=== PATIENT | male | born 1945 | race Caucasian/White ===

== ENCOUNTER → 2016-11-06 | Outpatient (CLI) | payer OTHER ==
[2016-11-06 08:12] LABS: BLOOD GAS BASE EXCESS -1.3 mmol/L (-2-2); BLOOD GAS CARBOXYHEMOGLOBIN 1.4 % (0-4); BLOOD GAS HCO3 23 mmol/L (22-26); BLOOD GAS METHEMOGLOBIN 1.3 % (0-2); BLOOD GAS O2 HGB SATURATION 95 % (90-100); BLOOD GAS OXYGEN CONTENT 19.6 Vol % (12.0-20.0); BLOOD GAS PCO2 36 mmHG (38-42); BLOOD GAS PO2 91 mmHG (61-120); BLOOD GAS TOTAL HGB 14.6 G/DL (12.0-16.0); CRITICAL VALUE NO; DRAW SITE RT RADIAL; FIO2 21 %; NUMBER OF ARTERIAL PUNCTURES 1; OXYGEN DEVICE ROOM AIR; STAT NO; TEMP CORR TO 98.6; ULNAR PULSE PRESENT
--- NOTE | 2016-11-07 08:48 | RSPPFT ---
DATE OF PROCEDURE: 11/06/16 COMMENTS: Spirometry shows FVC of 4.07 at 89% of predicted, FEV1 of 3.1 at 88%, FEV1/FVC ratio is normal. Flow is normal at FEF 25, FEF 50, FEF 75 and FEF 25-75. There is no response after bronchodilator treatment. Lung volumes show residual volume is normal. TLC is normal. Diffusion capacity is decreased. Flow volume loop indicates a normal pattern. Blood gases show pH of 7.42, PCO2 of 36, PO2 of 91, BiCarb of 23, O2 Saturation at 96%. 5-minute walk test shows no de-saturation. IMPRESSION: 1. Normal spirometry. 2. No response after bronchodilator treatment. 3. Lung volumes are normal. 4. Decrease in diffusion capacity. 5. Blood gases show normal oxygenation. 6. 6-minute walk test shows no de-saturation.
== END ==
LOC: PHRSP 07:38
PROVIDERS: ATTEND Specialist
DX: R06.00 Dyspnea, unspecified (principal)
CPT/HCPCS: 36600; 82805; 94060; 94620; 94726; 94729

== ENCOUNTER 2017-05-08 15:24 | Emergency (ER) | payer OTHER ==
[~2017-05-08] VITALS: Ht 182.9 cm; Wt 89.0 kg
[2017-05-08 15:30] VITALS: BP 220/161; PULSE 106; RESP 28; TEMP 99.6; O2SAT 92
[2017-05-08] MEDS ORDERED: predniSONE 50 MG TAB PO ONE (16:00)
[2017-05-08 16:09] VITALS: BP 136/76; PULSE 90; RESP 16; TEMP 99.7; O2SAT 95
[2017-05-08] MEDS ORDERED: OMEG1CAP53 PO (16:09)
[2017-05-08] MEDS ORDERED: CENTCHW4 CHEW (16:09)
[2017-05-08] MEDS ORDERED: LISI-515 PO (16:09)
[2017-05-08] MEDS ORDERED: ATOR40TA16 PO (16:09)
[2017-05-08] MEDS ORDERED: CALC1TAB12 PO (16:09)
[2017-05-08] MEDS ORDERED: ASPI-516 CHEW (16:09)
[2017-05-08] MEDS ORDERED: VITATAB11 (16:09)
[2017-05-08] MEDS ORDERED: FLUO1TAB3 PO (16:09)
[2017-05-08] MEDS ORDERED: FENO145T2 PO (16:09)
--- NOTE | 2017-05-08 16:15 | RADRPT ---
EXAM DATE/TIME: 05/08/2017 15:48 [facility] COMPARISON: No previous studies available for comparison. INDICATIONS : Flu like symptoms for one month. Productive cough, fever, chest pain and short of breath. MEDICAL HISTORY : Hypertension. SURGICAL HISTORY : None. ENCOUNTER: Initial ACUITY: 1 month PAIN SCORE: 8/10 LOCATION: Bilateral chest FINDINGS: PA and lateral views of the chest. Moderate to severe bilateral interstitial pulmonary opacity with p eripheral and lower lung zone predominance right greater than left. No evidence of focal consolidatio n. No pleural effusion or pneumothorax. Cardiomediastinal silhouette within normal limits. Moderate l eft glenohumeral joint arthrosis. Degenerative findings of the thoracic spine. CONCLUSION: Moderate bilateral interstitial pulmonary opacity. Differential diagnosis is chronic interstitial addison g disease versus pulmonary edema. George Buck MD on May 08, 2017 at 16:09 Board Certified Radiologist. This report was verified electronically.
[2017-05-08] MEDS ORDERED: methylPREDNISolone SOD SUCC 125 MG/2 ML VIAL IV PUSH ONE (16:30)
[2017-05-08] MEDS ORDERED: RESP: ALBUTEROL 2.5 MG/IPRATROPIUM 0.5 MG NEB (SCH) INH ONE (16:30)
--- NOTE | 2017-05-08 16:30 | PD ---
HPI Chief Complaint: Cold / Flu Symptoms Time Seen by Provider: 15:37 Travel History International Travel<30 days: No Contact w/Intl Traveler<30days: No Traveled to known affect area: No History of Present Illness HPI PATIENT C/O CONTINUED COUGH DESPITE BEING GIVEN TAMIFLU RX FOR HIS FLU DIAGNOSED AT URGENT CARE. PATIENT STATES THAT HE WAS DIAGNOSED BY DR SULLIVAN HAVING "SCAR TISSUE IN HIS LUNGS" BUT PATIENT WAS UNSURE OF COPD DX. PATIENT STATES INITIALLY HAD FEVER, WHICH HAVE SUBSIDED NOW, BUT PROD COUGH IS NOW PRESENT AND NOT IMPROVING. PT DENIES SOB PFSH Past Medical History Hx Anticoagulant Therapy: Yes (ASA 81 MG DAILY) Cardiovascular Problems: Yes (HTN,CHOLEST) High Cholesterol: Yes Hypertension: Yes Social History Alcohol Use: No Tobacco Use: No Substance Use: No Allergies-Medications (Allergen,Severity, Reaction): Coded Allergies: No Known Allergies (Unverified , 05/08/17) Reported Meds & Prescriptions Reported Meds & Active Scripts Active Reported Lovaza (Xvwyn-8-Wdjt Ethyl Esters) 1 Gm Cap 2 Gm PO BID Centrum (Multiple Vitamins W/ Minerals) 1 Chew 1 Tab CHEW DAILY Vitamin B Complex (B-Complex Vitamins) 1 Tab Calcium 500 +D (Calcium Carbonate-Cholecalciferol) 500-400 Mg-Unit Tab 1 Tab PO BID Atorvastatin (Atorvastatin Calcium) 40 Mg Tab 40 Mg PO HS Fenofibrate 145 Mg Tab 145 Mg PO DAILY Lisinopril 20 Mg Tab 20 Mg PO DAILY Fluoxetine (Fluoxetine HCl) 20 Mg Tab 20 Mg PO DAILY Aspirin 81 Mg Chew 81 Mg CHEW DAILY Review of Systems Except as stated in HPI: all other systems reviewed are Neg General / Constitutional: No: Fever Eyes: No: Visual changes HENT: No: Headaches Cardiovascular: No: Chest Pain or Discomfort Respiratory: Positive: Cough Gastrointestinal: No: Abdominal Pain Genitourinary: No: Dysuria Musculoskeletal: No: Pain Skin: No Rash Neurologic: No: Weakness Psychiatric: No: Depression Endocrine: No: Polydipsia Hematologic/Lymphatic: No: Easy Bruising Physical Exam Narrative GENERAL: SKIN: Warm and dry. HEAD: Atraumatic. Normocephalic. EYES: Pupils equal and round. No scleral icterus. No injection or drainage. ENT: No nasal bleeding or discharge. Mucous membranes pink and moist. NECK: Trachea midline. No JVD. CARDIOVASCULAR: Regular rate and rhythm. RESPIRATORY: No accessory muscle use. Clear to auscultation EXCEPT DRY CRACKLES BIBASILARLY GASTROINTESTINAL: Abdomen soft, non-tender, nondistended. Hepatic and splenic margins not palpable. MUSCULOSKELETAL: Extremities without clubbing, cyanosis, or edema. No obvious deformities. NEUROLOGICAL: Awake and alert. No obvious cranial nerve deficits. Motor grossly within normal limits. Five out of 5 muscle strength in the arms and legs. Normal speech. PSYCHIATRIC: Appropriate mood and affect; insight and judgment normal. Data Data Last Documented VS Vital Signs Date Time Temp Pulse Resp B/P (MAP) Pulse Ox O2 Delivery O2 Flow Rate FiO2 05/08/17 16:09 99.7 90 16 136/76 (96) 95 Room Air Orders Orders Chest, Pa & Lat (05/08/17 15:37) Prednisone (Deltasone) (05/08/17 16:00) Complete Blood Count With Diff (05/08/17 16:18) Basic Metabolic Panel (Bmp) (05/08/17 16:18) B-Type Natriuretic Peptide (05/08/17 16:18) Methylprednisolone So Succ Inj (Solumedr (05/08/17 16:30) Albuterol-Ipratropium Neb (Duoneb Neb) (05/08/17 16:30) Sodium Chloride 0.9% Flush (Ns Flush) (05/08/17 17:15) Azithromycin Inj (Zithromax Inj) (05/08/17 17:15) Labs Laboratory Tests Test 05/08/17 16:18 05/08/17 16:32 White Blood Count 10.5 TH/MM3 Red Blood Count 4.46 MIL/MM3 Hemoglobin 12.9 GM/DL Hematocrit 39.1 % Mean Corpuscular Volume 87.5 FL Mean Corpuscular Hemoglobin 28.9 PG Mean Corpuscular Hemoglobin Concent 33.0 % Red Cell Distribution Width 13.0 % Platelet Count 248 TH/MM3 Mean Platelet Volume 7.6 FL Neutrophils (%) (Auto) 79.7 % Lymphocytes (%) (Auto) 8.0 % Monocytes (%) (Auto) 8.4 % Eosinophils (%) (Auto) 1.6 % Basophils (%) (Auto) 2.3 % Neutrophils # (Auto) 8.4 TH/MM3 Lymphocytes # (Auto) 0.8 TH/MM3 Monocytes # (Auto) 0.9 TH/MM3 Eosinophils # (Auto) 0.2 TH/MM3 Basophils # (Auto) 0.2 TH/MM3 CBC Comment DIFF FINAL Differential Comment Blood Urea Nitrogen 24 MG/DL Creatinine 1.40 MG/DL Random Glucose 119 MG/DL Calcium Level 9.3 MG/DL Sodium Level 131 MEQ/L Potassium Level 4.7 MEQ/L Chloride Level 99 MEQ/L Carbon Dioxide Level 19.9 MEQ/L Anion Gap 12 MEQ/L Estimat Glomerular Filtration Rate 50 ML/MIN [facility] Medical Decision Making Medical Screen Exam Complete: Yes Emergency Medical Condition: Yes Medical Record Reviewed: Yes Differential Diagnosis PNA V PULM EDEMA V PULMONARY FIBROSIS V LIVER/KIDNEY FAILURE V ANEMIA Narrative Course NO ANEMIA, MINIMAL NEUTROPHILIA WITHOUT MAJOR LEUKOCYTOSIS....NO KIDNEY FAILURE , NORMAL BNP WHICH THEREFORE MAKE LUNG MARKINGS BE DUE TO FIBROSIS RATHER THAN PULMONARY EDEMA Diagnosis Primary Impression: Pleurisy Scripts Guaifenesin-Codeine Liq (Guaifenesin AC Liq) 100-10 Mg/5 Ml Syrp 10 ML PO Q6H Y for COUGH, #120 BOTTLE 0 Refills Prov: Cade Dominguez MD 05/08/17 Azithromycin (Zithromax Z-Benito) 250 Mg Dspk 250 MG PO DIRECTED for Infection, #1 DSPK 0 Refills 500 MG (2 tabs) day 1, then 1 tab days 2-5. Prov: Cade Dominguez MD 05/08/17 Disposition: 01 DISCHARGE HOME Condition: Stable Cade Dominguez MD May 08, 2017 16:30
[2017-05-08 16:46] LABS: AUTOMATED NEUTROPHIL # 8.4 TH/MM3 (1.8-7.7); BASOPHIL # 0.2 TH/MM3 (0-0.2); BASOPHIL % 2.3 % (0.0-2.0); EOSINOPHIL # 0.2 TH/MM3 (0-0.4); EOSINOPHIL % 1.6 % (0.0-4.0); HEMATOCRIT 39.1 % (39.0-51.0); HEMOGLOBIN 12.9 GM/DL (13.0-17.0); LYMPHOCYTE # 0.8 TH/MM3 (1.0-4.8); MEAN CELL VOLUME 87.5 FL (80.0-100.0); MEAN CORPUSCULAR HEMOGLOBIN 28.9 PG (27.0-34.0); MEAN PLATELET VOLUME 7.6 FL (7.0-11.0); MONO % 8.4 % (0.0-8.0); MONOCYTE # 0.9 TH/MM3 (0-0.9); NEUT % 79.7 % (16.0-70.0); PLATELET COUNT 248 TH/MM3 (150-450); RED BLOOD COUNT 4.46 MIL/MM3 (4.50-5.90); WHITE BLOOD COUNT 10.5 TH/MM3 (4.0-11.0)
[2017-05-08 16:59] LABS: BICARBONATE 19.9 MEQ/L (21.0-32.0); CALCIUM 9.3 MG/DL (8.5-10.1)
[2017-05-08 17:03] LABS: CREATININE 1.4 MG/DL (0.60-1.30)
[2017-05-08] MEDS ORDERED: AZITHROMYCIN INJ 500 MG in SODIUM CHLOR 0.9% 250 ML INJ 250 ML IV ONE (17:15)
[2017-05-08] MEDS ORDERED: SODIUM CHLORIDE 0.9% FLUSH 10 ML FLUSH IVF PRN (17:15)
[2017-05-08] MEDS ORDERED: ZITHTAB PO (17:51)
[2017-05-08] MEDS ORDERED: GUAISYP4 PO (17:51)
[2017-05-08] MEDS ORDERED: ALBU6.7H INH (18:43)
[2017-05-08] MEDS ORDERED: MEDR4PAK PO (18:43)
[2017-05-08 19:13] VITALS: BP 139/64
== END 2017-05-08 19:15 | disposition home or self-care (01) ==
LOC: PHED 15:24
DX: R09.1 Pleurisy (principal); I10 Essential (primary) hypertension; Z79.82 Long term (current) use of aspirin
CPT/HCPCS: 71046; 80048; 83880; 85025; 94664; 96365; 96375; 99284; J0456; J2930; J7050

== ENCOUNTER 2017-05-15 19:00 | Inpatient (IN) | payer OTHER ==
[~2017-05-15] VITALS: Ht 182.9 cm; Wt 86.3 kg
[~2017-05-15 19:00] MED LIST: ALBU6.7H INH; ASPI-516 CHEW; ATOR40TA16 PO; CALC1TAB12 PO; CENTCHW4 CHEW; FENO145T2 PO; FLUO1TAB3 PO; GUAISYP4 PO; LISI-515 PO; MEDR4PAK PO; OMEG1CAP53 PO; VITATAB11; ZITHTAB PO
[2017-05-15 19:04] VITALS: BP 102/55; PULSE 90; RESP 34; TEMP 97.7; O2SAT 97
[2017-05-15 19:08] VITALS: O2SAT 98
--- NOTE | 2017-05-15 19:29 | PD ---
HPI Chief Complaint: Respiratory Distress Time Seen by Provider: 19:05 Travel History International Travel<30 days: No Contact w/Intl Traveler<30days: No Traveled to known affect area: No History of Present Illness HPI Patient is a 72-year-old male with a history of shortness of breath recent ER visits chest x-ray significant for probable pulmonary fibrosis presents the emergency department with shortness of breath. Patient was here a few days ago started on azithromycin, he states that he has a history of some lung scar tissue and is seen a mold runner before. According to his patient appeared very diaphoretic and was having a very hard time breathing and looked like he was going to pass out at home, she was going to bring him up here by herself but then he looked like he was going to pass out so she called 911. He was started on breathing treatments and nonrebreather in route but his room air sat was apparently in the high 90s according to EMS. PFSH Past Medical History Hx Anticoagulant Therapy: Yes (ASA 81 MG DAILY) Cardiovascular Problems: Yes (HTN,CHOLEST) High Cholesterol: Yes Hypertension: Yes Influenza Vaccination: No Past Surgical History Appendectomy: Yes Social History Alcohol Use: Yes (daily) Tobacco Use: No Substance Use: No Allergies-Medications (Allergen,Severity, Reaction): Coded Allergies: No Known Allergies (Unverified , 05/15/17) Reported Meds & Prescriptions Reported Meds & Active Scripts Active Proventil Hfa 6.7 GM Inh (Albuterol Sulfate) 90 Mcg/Act Aer 1 Puff INH Q4H PRN Reported Lovaza (Cbslt-4-Hsxw Ethyl Esters) 1 Gm Cap 2 Gm PO BID Centrum (Multiple Vitamins W/ Minerals) 1 Chew 1 Tab CHEW DAILY Vitamin B Complex (B-Complex Vitamins) 1 Tab Calcium 500 +D (Calcium Carbonate-Cholecalciferol) 500-400 Mg-Unit Tab 1 Tab PO BID Atorvastatin (Atorvastatin Calcium) 40 Mg Tab 40 Mg PO HS Fenofibrate 145 Mg Tab 145 Mg PO DAILY Lisinopril 20 Mg Tab 20 Mg PO DAILY Fluoxetine (Fluoxetine HCl) 20 Mg Tab 20 Mg PO DAILY Aspirin 81 Mg Chew 81 Mg CHEW DAILY Review of Systems Except as stated in HPI: all other systems reviewed are Neg Physical Exam Narrative GENERAL: Well-developed well-nourished, anxious. Tachycardic and tachypneic. SKIN: Focused skin assessment warm/dry. HEAD: Atraumatic. Normocephalic. EYES: Pupils equal and round. No scleral icterus. No injection or drainage. ENT: No nasal bleeding or discharge. Mucous membranes pink and moist. NECK: Trachea midline. No JVD. CARDIOVASCULAR: Regular rate and rhythm. No murmur appreciated. RESPIRATORY: No accessory muscle use. Bibasilar rales, tachypnea. Breath sounds equal bilaterally. GASTROINTESTINAL: Abdomen soft, non-tender, nondistended. Hepatic and splenic margins not palpable. MUSCULOSKELETAL: No obvious deformities. No clubbing. No cyanosis. No edema. NEUROLOGICAL: Awake and alert. No obvious cranial nerve deficits. Motor grossly within normal limits. Normal speech. PSYCHIATRIC: Appropriate mood and affect; insight and judgment normal. Data Data Last Documented VS Vital Signs Date Time Temp Pulse Resp B/P (MAP) Pulse Ox O2 Delivery O2 Flow Rate FiO2 05/15/17 23:01 84 16 156/67 (96) 97 Nasal Cannula 4.00 05/15/17 19:04 97.7 Orders Orders Sepsis Workup Initiated (05/15/17 ) Electrocardiogram (05/15/17 19:05) Complete Blood Count With Diff (05/15/17 19:05) Comprehensive Metabolic Panel (05/15/17 19:05) Prothrombin Time / Inr (Pt) (05/15/17 19:05) Act Partial Throm Time (Ptt) (05/15/17 19:05) Lactic Acid Sepsis Protocol (05/15/17 19:05) Magnesium (Mg) (05/15/17 19:05) Phosphorus (Po4) (05/15/17 19:05) Lipase (05/15/17 19:05) Ckmb (Isoenzyme) Profile (05/15/17 19:05) Troponin I (05/15/17 19:05) Urinalysis - C+S If Indicated (05/15/17 19:05) Blood Culture (05/15/17 19:05) Chest, Single Ap (05/15/17 19:05) Blood Gas Venous (Vbg) (05/15/17 19:05) Ecg Monitoring (05/15/17 19:05) Iv Access Insert/Monitor (05/15/17 19:05) Oximetry (05/15/17 19:05) Oxygen Administration (05/15/17 19:05) Ct Thorax/ Chest Wo Iv Contras (05/15/17 ) Ventilation & Perfusion Scan (05/15/17 ) Sodium Chlor 0.9% 1000 Ml Inj (Ns 1000 M (05/15/17 20:00) Sodium Chlor 0.9% 1000 Ml Inj (Ns 1000 M (05/15/17 20:15) Vancomycin Inj (Vancomycin Inj) (05/15/17 20:30) Piperacil-Tazo 4.5 Gm Premix (Zosyn 4.5 (05/15/17 20:30) Sodium Chlor 0.9% 1000 Ml Inj (Ns 1000 M (05/15/17 21:45) Sodium Chlor 0.9% 1000 Ml Inj (Ns 1000 M (05/15/17 22:15) Admit Order (Ed Use Only) (05/15/17 ) Labs Laboratory Tests Test 05/15/17 19:10 05/15/17 19:12 05/15/17 19:43 05/15/17 21:05 White Blood Count 13.8 TH/MM3 Red Blood Count 5.05 MIL/MM3 Hemoglobin 14.8 GM/DL Hematocrit 43.9 % Mean Corpuscular Volume 86.8 FL Mean Corpuscular Hemoglobin 29.4 PG Mean Corpuscular Hemoglobin Concent 33.8 % Red Cell Distribution Width 14.1 % Platelet Count 369 TH/MM3 Mean Platelet Volume 7.2 FL Neutrophils (%) (Auto) 74.1 % Lymphocytes (%) (Auto) 18.5 % Monocytes (%) (Auto) 5.1 % Eosinophils (%) (Auto) 1.7 % Basophils (%) (Auto) 0.6 % Neutrophils # (Auto) 10.2 TH/MM3 Lymphocytes # (Auto) 2.6 TH/MM3 Monocytes # (Auto) 0.7 TH/MM3 Eosinophils # (Auto) 0.2 TH/MM3 Basophils # (Auto) 0.1 TH/MM3 CBC Comment AUTO DIFF Differential Total Cells Counted 100 Neutrophils % (Manual) 55 % Band Neutrophils % 8 % Lymphocytes % 15 % Monocytes % 5 % Eosinophils % 2 % Neutrophils # (Manual) 10.8 TH/MM3 Metamyelocytes 5 % Myelocytes 3 % Promyelocytes 7 % Differential Comment FINAL DIFF MANUAL Atypical Lymphocytes % Platelet Estimate NORMAL Platelet Morphology Comment NORMAL Prothrombin Time 10.5 SEC Prothromb Time International Ratio 1.0 RATIO Activated Partial Thromboplast Time 24.2 SEC Blood Urea Nitrogen 45 MG/DL Creatinine 1.84 MG/DL Random Glucose 86 MG/DL Total Protein 7.2 GM/DL Albumin 2.7 GM/DL Calcium Level 9.7 MG/DL Phosphorus Level 2.8 MG/DL Magnesium Level 2.2 MG/DL Alkaline Phosphatase 82 U/L Aspartate Amino Transf (AST/SGOT) 31 U/L Alanine Aminotransferase (ALT/SGPT) 55 U/L Total Bilirubin 0.2 MG/DL Sodium Level 132 MEQ/L Potassium Level 5.4 MEQ/L Chloride Level 102 MEQ/L Carbon Dioxide Level 19.9 MEQ/L Anion Gap 10 MEQ/L Estimat Glomerular Filtration Rate 36 ML/MIN Total Creatine Kinase 40 U/L Troponin I LESS THAN 0.02 NG/ML Lipase 1045 U/L Lactic Acid Level 4.3 mmol/L Blood Gas Puncture Site IV Blood Gas Patient Temperature 98.6 Venous Blood pH 7.51 Venous Blood Partial Pressure CO2 23 mmHg Venous Blood Partial Pressure O2 16 mmHg Venous Blood HCO3 18 mmol/L Venous Blood Oxygen Saturation 21 % Venous Blood Oxygen Content 4.2 Vol % Venous Blood Base Excess -4.6 mmol/L Oxygen Delivery Device NASAL CANNULA Blood Gas Liter Flow 4 L/M Urine Color YELLOW Urine Turbidity CLEAR Urine pH 5.5 Urine Specific [place] 1.015 Urine Protein NEG mg/dL Urine Glucose (UA) NEG mg/dL Urine Ketones NEG mg/dL Urine Occult Blood NEG Urine Nitrite NEG Urine Bilirubin NEG Urine Urobilinogen LESS THAN 2.0 MG/DL Urine Leukocyte Esterase NEG Urine RBC 1 /hpf Urine WBC 1 /hpf Urine Squamous Epithelial Cells <1 /hpf Urine Hyaline Casts 21 /lpf Urine Mucus FEW /lpf Microscopic Urinalysis Comment CATH-CULT NOT IND Test 05/15/17 21:58 Lactic Acid Level 1.8 mmol/L [facility] Medical Decision Making Medical Screen Exam Complete: Yes Emergency Medical Condition: Yes Differential Diagnosis Sepsis, pulmonary embolism, pneumonia, pulmonary fibrosis Narrative Course Patient room to the emergency department, lactic acid elevated, patient has left shift and immature white blood cells in his differential with elevated white blood cell count. Certainly meet SIRS criteria. Noncontrast CT shows the following results Last 24 hours Impressions Chest X-Ray 05/15/17 [id number] Signed Impressions: Service Date/Time: May 19:38 - CONCLUSION: Patchy opacities within the lung bases bilaterally and right mid lung field consistent with probable pneumonia. Clinical correlation is recommended. Martin Jones MD Lung Scan-VQ Nuclear Medicine 05/15/17 0000 Signed Impressions: Service Date/Time: May 20:56 - CONCLUSION: Low probability for pulmonary embolism. Martin Jones MD Chest CT 05/15/17 0000 Signed Impressions: Service Date/Time: May 20:04 - CONCLUSION: 1. Scattered patchy opacities throughout both lungs consistent with probable pneumonia superimposed on chronic interstitial disease. Clinical correlation is recommended. 2. Cardiomegaly and coronary artery calcifications. 3. Mildly prominent precarinal and AP window mediastinal lymphadenopathy which is nonspecific. 4. Questionable 2.7 cm left adrenal nodule which is incompletely evaluated on this examination. Martin Jones MD Patient VBG is reassuring, fluids given, antibiotic coverage broadened. Patient started on vancomycin and Zosyn, hemodynamically stable will be admitted to the hospital for diagnosis of severe sepsis, hemodynamic is stable for the floor Critical Care Narrative Aggregate critical care time was 35 minutes. Time to perform other separately billable procedures was not included in the critical care time. My time did not include minutes spent treating any other patients simultaneously or on activities that did not directly contribute to the patient's treatment. The services I provided to this patient were to treat and/or prevent clinically significant deterioration that could result in: , disability, organ failure I provided critical care services requiring my management, as noted below: Chart data review, documentation time, medication orders and management, vital sign assessments/reviewing monitor data, ordering and reviewing lab tests, ordering and interpreting/reviewing x-rays and diagnostic studies, care of the patient and discussion of the patient with the admitting physicians. Diagnosis Primary Impression: Severe sepsis Additional Impression: Pneumonia Admitting Information Admitting Physician Requests: Admit Condition: Martin Blanton MD May 15, 2017 19:29
[2017-05-15 19:30] LABS: AUTOMATED NEUTROPHIL # 10.2 TH/MM3 (1.8-7.7); BASOPHIL # 0.1 TH/MM3 (0-0.2); BASOPHIL % 0.6 % (0.0-2.0); EOSINOPHIL # 0.2 TH/MM3 (0-0.4); EOSINOPHIL % 1.7 % (0.0-4.0); HEMATOCRIT 43.9 % (39.0-51.0); HEMOGLOBIN 14.8 GM/DL (13.0-17.0); LYMPH % 18.5 % (9.0-44.0); LYMPHOCYTE # 2.6 TH/MM3 (1.0-4.8); MEAN CELL VOLUME 86.8 FL (80.0-100.0); MEAN CORPUSCULAR HEMOGLOBIN 29.4 PG (27.0-34.0); MEAN CORPUSCULAR HGB CONC 33.8 % (32.0-36.0); MEAN PLATELET VOLUME 7.2 FL (7.0-11.0); MONO % 5.1 % (0.0-8.0); MONOCYTE # 0.7 TH/MM3 (0-0.9); NEUT % 74.1 % (16.0-70.0); PLATELET COUNT 369 TH/MM3 (150-450); RED BLOOD COUNT 5.05 MIL/MM3 (4.50-5.90); RED CELL DISTRIBUTION WIDTH 14.1 % (11.6-17.2); WHITE BLOOD COUNT 13.8 TH/MM3 (4.0-11.0)
[2017-05-15 19:42] LABS: PROTHROMBIN TIME - PATIENT 10.5 SEC (9.8-11.6)
[2017-05-15 19:43] LABS: ALBUMIN 2.7 GM/DL (3.4-5.0); AST (GOT) 31 U/L (15-37); BICARBONATE 19.9 MEQ/L (21.0-32.0); BLOOD UREA NITROGEN 45 MG/DL (7-18); CALCIUM 9.7 MG/DL (8.5-10.1); CHLORIDE 102 MEQ/L (98-107); CREATININE 1.84 MG/DL (0.60-1.30); GLOMERULAR FILTRATION RATE 36 ML/MIN (>89); GLUCOSE,RANDOM 86 MG/DL (74-106); MAGNESIUM 2.2 MG/DL (1.5-2.5); SODIUM (NA) 132 MEQ/L (136-145)
[2017-05-15 19:44] LABS: ALT (GPT) 55 U/L (12-78); PHOSPHORUS 2.8 MG/DL (2.5-4.9)
[2017-05-15 19:46] LABS: ALKALINE PHOSPHATASE 82 U/L (45-117); TOTAL BILIRUBIN ADULT 0.2 MG/DL (0.2-1.0); TOTAL PROTEIN 7.2 GM/DL (6.4-8.2); TROPONIN I LESS THAN 0.02 NG/ML (0.02-0.05)
[2017-05-15 19:54] LABS: LACTIC ACID SEPSIS PROTOCOL 4.3 mmol/L (0.4-2.0)
[2017-05-15] MEDS ORDERED: SODIUM CHLOR 0.9% 1000 ML INJ 1,000 ML IV ONE ×4 (20:00→22:15)
--- NOTE | 2017-05-15 20:06 | RADRPT ---
EXAM DATE/TIME: 05/15/2017 19:38 [facility] COMPARISON: No previous studies available for comparison. INDICATIONS : Cough. MEDICAL HISTORY : None. SURGICAL HISTORY : None. ENCOUNTER: Initial ACUITY: 1 day PAIN SCORE: 3/10 LOCATION: Bilateral chest FINDINGS: Scattered patchy opacities are noted within the lung bases and right mid lung field consistent with p robable pneumonia. Clinical correlation is recommended. The heart is normal. CONCLUSION: Patchy opacities within the lung bases bilaterally and right mid lung field consistent with probable pneumonia. Clinical correlation is recommended. Martin Jones MD on May 15, 2017 at 20:02 Board Certified Radiologist. This report was verified electronically.
[2017-05-15 20:26] VITALS: BP 128/58; PULSE 86; RESP 14; O2SAT 99
[2017-05-15 20:29] LABS: BANDS 8 % (0-6); METAMYELOCYTES 5 % (0-1); MONOCYTES 5 % (0-8); MYELOCYTES 3 % (0-0); NEUTROPHIL # MANUAL DIFF 10.8 TH/MM3 (1.8-7.7); POLYS (SEG NEUTROPHILS) 55 % (16-70); PROMYELOCYTES 7 % (0-0)
[2017-05-15] MEDS ORDERED: PIPERACIL-TAZO 4.5 GM PREMIX 100 ML IV ONE (20:30)
[2017-05-15] MEDS ORDERED: VANCOMYCIN INJ 1,000 MG in SODIUM CHLOR 0.9% 250 ML INJ 250 ML IV ONE (20:30)
[2017-05-15 20:31] LABS: LYMPHOCYTES 15 % (9-44)
--- NOTE | 2017-05-15 20:50 | RADRPT ---
EXAM DATE/TIME: 05/15/2017 20:04 This report includes an Addendum and supersedes previous reports for this exam. [facility] COMPARISON: No previous studies available for comparison. INDICATIONS : Increasing shortness of breath. RADIATION DOSE: 11.50 CTDIvol (mGy) MEDICAL HISTORY : Hypertension. SURGICAL HISTORY : Hysterectomy. ENCOUNTER: Initial ACUITY: 1 day PAIN SCALE: 0/10 LOCATION: chest TECHNIQUE: Volumetric scanning of the chest was performed. Using automated exposure control and adjustment of t he mA and/or kV according to patient size, radiation dose was kept as low as reasonably achievable to obtain optimal diagnostic quality images. DICOM format image data is available electronically for r eview and comparison. Follow-up recommendations for detected pulmonary nodules are based at a minimum on nodule size and pa tient risk factors according to Fleischner Society Guidelines. FINDINGS: Scattered patchy opacities are noted throughout both lungs consistent with probable pneumonia superim posed on chronic interstitial disease. Clinical correlation is recommended. The heart is enlarged. Co ronary artery calcifications are noted. No pulmonary nodule or mass is noted. No pleural effusion is noted. Scattered precarinal and AP window mediastinal lymphadenopathy is noted but is nonspecific. De generative changes and scoliosis of the thoracic spine are noted. There is a questionable 2.7 cm left adrenal nodule which is incompletely evaluated on this examination. CONCLUSION: 1. Scattered patchy opacities throughout both lungs consistent with probable pneumonia superimposed o n chronic interstitial disease. Clinical correlation is recommended. 2. Cardiomegaly and coronary artery calcifications. 3. Mildly prominent precarinal and AP window mediastinal lymphadenopathy which is nonspecific. 4. Questionable 2.7 cm left adrenal nodule which is incompletely evaluated on this examination. Martin Jones MD on May 15, 2017 at 20:42 Board Certified Radiologist. This report was verified electronically. ADDENDUM: The visualized portion of the left adrenal gland nodule shows Hounsfield units of 9. The visualized p ortions of the nodule are smoothly marginated. Although this lesion is incompletely evaluated on this study is likely relating to a benign adenoma. If further imaging is needed adrenal gland protocol MR I could be performed if clinically warranted. Baron Dahl Jr., MD on May 16, 2017 at 14:41 Board Certified Radiologist. This report was verified electronically.
[2017-05-15 21:23] LABS: BILIRUBIN, URINE NEG (NEG); BLOOD, URINE NEG (NEG); GLUCOSE,URINE NEG (NEG); HYALINE CAST, URINE 21 /lpf (RARE); KETONE, URINE NEG (NEG); MUCUS URINE FEW /lpf (OCC); NITRITE,URINE NEG (NEG); PH, URINE 5.5 (5.0-8.5); SQUAMOUS EPITHELIAL CELL URINE <1 /hpf (0-5); URINE COLOR YELLOW (YELLW/STRAW); URINE LEUKOCYTE ESTERASE NEG (NEG)
--- NOTE | 2017-05-15 22:06 | RADRPT ---
EXAM DATE/TIME: 05/15/2017 20:56 [facility] COMPARISON: CT THORAX W/O CONTRAST, May 15, 2017, 20:04. INDICATIONS : Dyspnea. DOSE: 8.3 mCi Tc99m MAA IV 1.2 mCi Tc99m DTPA aerosol MEDICAL HISTORY : Hypertension. SURGICAL HISTORY : Appendectomy. ENCOUNTER: Initial ACUITY: 3 days PAIN SCALE: 0/10 LOCATION: Chest. TECHNIQUE: Following five minutes of tidal breathing of DTPA aerosol, planar images of the lungs were performed in eight projections. The patient was then injected with MAA, and eight-view perfusion scan was perf ormed. FINDINGS: There is a homogeneous pattern of aerosol delivery to the periphery of both lungs. No focal ventilat ory defects are seen. The perfusion lung scan demonstrates a homogenous pattern of uptake in both lungs. No significant se gmental or subsegmental mismatches are noted. CONCLUSION: Low probability for pulmonary embolism. Martin Jones MD on May 15, 2017 at 22:02 Board Certified Radiologist. This report was verified electronically.
[2017-05-15 22:08] VITALS: BP 116/56; PULSE 74; RESP 16; O2SAT 98
[2017-05-15 23:01] VITALS: BP 156/67; PULSE 84; RESP 16; O2SAT 97
[2017-05-16] VITALS (11 sets, daily range): BP systolic 107–147; BP diastolic 56–73; PULSE 65–81; RESP 18–21; TEMP 97.4–99.4; O2SAT 94–99
--- NOTE | 2017-05-16 00:13 | HHI.HP ---
HPI Service [facility] Hospitalists Primary Care Physician Ralph Harrell MD Admission Diagnosis Severe Sepsis, PNA. Chief Complaint: progressive SOB over 2 weeks Travel History International Travel<30 Days: No Contact w/Intl Traveler <30 Da: No Traveled to Known Affected Are: No Sepsis Criteria SIRS Criteria (2 or more): WBC > 05441, < 4000 or > 10% bands Severe Sepsis (+one): Lactate >2 History of Present Illness Patient is a 72-year-old male with a history of shortness of breath recent ER visits chest x-ray significant for probable pulmonary fibrosis presents the emergency department with shortness of breath. Patient was here a few days ago started on azithromycin, he states that he has a history of some lung scar tissue and is seen a insurance claims clerk before. According to his patient appeared very diaphoretic and was having a very hard time breathing and looked like he was going to pass out at home, she was going to bring him up here by herself but then he looked like he was going to pass out so she called 911. He was started on breathing treatments and nonrebreather in route but his room air sat was apparently in the high 90s according to EMS. Patient about 2 weeks ago was dx as flu and was on tamaflu for 5 days never really got better and went to er 05/08/17 and started on zithromax ,chest xary at that time no significant findings and tonight on CT thorx has bilateral infiltrates superimposed on interstitial edwin disease and had positive lactic acid and elevated WBC count. Review of Systems Constitutional: COMPLAINS OF: Fever Respiratory: COMPLAINS OF: Cough, Shortness of breath Past Family Social History Past Medical History hyperlipidemia,hypertension Past Surgical History appendix,left shoulder surgery years ago Reported Medications Proventil Hfa 6.7 GM Inh (Albuterol Sulfate) 90 Mcg/Act Aer 1 Puff INH Q4H PRN Reported Lovaza (Qvizr-8-Evox Ethyl Esters) 1 Gm Cap 2 Gm PO BID Centrum (Multiple Vitamins W/ Minerals) 1 Chew 1 Tab CHEW DAILY Vitamin B Complex (B-Complex Vitamins) 1 Tab Calcium 500 +D (Calcium Carbonate-Cholecalciferol) 500-400 Mg-Unit Tab 1 Tab PO BID Atorvastatin (Atorvastatin Calcium) 40 Mg Tab 40 Mg PO HS Fenofibrate 145 Mg Tab 145 Mg PO DAILY Lisinopril 20 Mg Tab 20 Mg PO DAILY Fluoxetine (Fluoxetine HCl) 20 Mg Tab 20 Mg PO DAILY Aspirin 81 Mg Chew 81 Mg CHEW DA Allergies: Coded Allergies: No Known Allergies (Unverified , 05/15/17) Social History one drink a day former smoker Physical Exam Vital Signs Vital Signs Date Time Temp Pulse Resp B/P (MAP) Pulse Ox O2 Delivery O2 Flow Rate FiO2 05/15/17 23:01 84 16 156/67 (96) 97 Nasal Cannula 4.00 05/15/17 22:08 74 16 116/56 (76) 98 Nasal Cannula 4.00 05/15/17 20:26 86 14 128/58 (81) 99 Nasal Cannula 4.00 05/15/17 19:09 99 Nasal Cannula 2.00 05/15/17 19:08 98 Nasal Cannula 2.00 05/15/17 19:04 97.7 90 34 102/55 (71) 97 Physical Exam GENERAL: This is a well-nourished, well-developed patient, in no apparent distress. SKIN: No rashes, ecchymoses or lesions. Cool and dry. HEAD: Atraumatic. Normocephalic. No temporal or scalp tenderness. EYES: Pupils equal round and reactive. Extraocular motions intact. No scleral icterus. No injection or drainage. ENT: Nose without bleeding, purulent drainage or septal hematoma. Throat without erythema, tonsillar hypertrophy or exudate. Uvula midline. Airway patent. NECK: Trachea midline. No JVD or lymphadenopathy. Supple, nontender, no meningeal signs. CARDIOVASCULAR: Regular rate and rhythm without murmurs, gallops, or rubs. RESPIRATORY: Decrease breath sounds bilateral with scattered rhonchi bilaterally GASTROINTESTINAL: Abdomen soft, non-tender, nondistended. No hepato-splenomegaly , or palpable masses. No guarding. MUSCULOSKELETAL: Extremities without clubbing, cyanosis, or edema. No joint tenderness, effusion, or edema noted. No calf tenderness. Negative Homans sign bilaterally. NEUROLOGICAL: Awake and alert. Cranial nerves II through XII intact. Motor and sensory grossly within normal limits. Five out of 5 muscle strength in all muscle groups. Normal speech. Laboratory Laboratory Tests Test 05/15/17 19:10 05/15/17 19:12 05/15/17 19:43 05/15/17 21:05 White Blood Count 13.8 Red Blood Count 5.05 Hemoglobin 14.8 Hematocrit 43.9 Mean Corpuscular Volume 86.8 Mean Corpuscular Hemoglobin 29.4 Mean Corpuscular Hemoglobin Concent 33.8 Red Cell Distribution Width 14.1 Platelet Count 369 Mean Platelet Volume 7.2 Neutrophils (%) (Auto) 74.1 Lymphocytes (%) (Auto) 18.5 Monocytes (%) (Auto) 5.1 Eosinophils (%) (Auto) 1.7 Basophils (%) (Auto) 0.6 Neutrophils # (Auto) 10.2 Lymphocytes # (Auto) 2.6 Monocytes # (Auto) 0.7 Eosinophils # (Auto) 0.2 Basophils # (Auto) 0.1 CBC Comment AUTO DIFF Differential Total Cells Counted 100 Neutrophils % (Manual) 55 Band Neutrophils % 8 Lymphocytes % 15 Monocytes % 5 Eosinophils % 2 Neutrophils # (Manual) 10.8 Metamyelocytes 5 Myelocytes 3 Promyelocytes 7 Differential Comment FINAL DIFF MANUAL Atypical Lymphocytes Platelet Estimate NORMAL Platelet Morphology Comment NORMAL Prothrombin Time 10.5 Prothromb Time International Ratio 1.0 Activated Partial Thromboplast Time 24.2 Blood Urea Nitrogen 45 Creatinine 1.84 Random Glucose 86 Total Protein 7.2 Albumin 2.7 Calcium Level 9.7 Phosphorus Level 2.8 Magnesium Level 2.2 Alkaline Phosphatase 82 Aspartate Amino Transf (AST/SGOT) 31 Alanine Aminotransferase (ALT/SGPT) 55 Total Bilirubin 0.2 Sodium Level 132 Potassium Level 5.4 Chloride Level 102 Carbon Dioxide Level 19.9 Anion Gap 10 Estimat Glomerular Filtration Rate 36 Total Creatine Kinase 40 Troponin I LESS THAN 0.02 Lipase 1045 Lactic Acid Level 4.3 Blood Gas Puncture Site IV Blood Gas Patient Temperature 98.6 Venous Blood pH 7.51 Venous Blood Partial Pressure CO2 23 Venous Blood Partial Pressure O2 16 Venous Blood HCO3 18 Venous Blood Oxygen Saturation 21 Venous Blood Oxygen Content 4.2 Venous Blood Base Excess -4.6 Oxygen Delivery Device NASAL CANNULA Blood Gas Liter Flow 4 Urine Color YELLOW Urine Turbidity CLEAR Urine pH 5.5 Urine Specific [place] 1.015 Urine Protein NEG Urine Glucose (UA) NEG Urine Ketones NEG Urine Occult Blood NEG Urine Nitrite NEG Urine Bilirubin NEG Urine Urobilinogen LESS THAN 2.0 Urine Leukocyte Esterase NEG Urine RBC 1 Urine WBC 1 Urine Squamous Epithelial Cells <1 Urine Hyaline Casts 21 Urine Mucus FEW Microscopic Urinalysis Comment CATH-CULT NOT IND Test 05/15/17 21:58 Lactic Acid Level 1.8 Date/Time Source Procedure Growth Status 05/15/17 19:12 Blood Peripheral Aerobic Blood Culture Pending Received 05/15/17 19:12 Blood Peripheral Anaerobic Blood Culture Pending Received Result Diagram: 05/15/17190905/15/171909 Imaging Last 24 hours Impressions Chest X-Ray 05/15/171904 Signed Impressions: Service Date/Time: May 19:38 - CONCLUSION: Patchy opacities within the lung bases bilaterally and right mid lung field consistent with probable pneumonia. Clinical correlation is recommended. Martin Jones MD Last 24 hours Impressions Chest X-Ray 05/15/171904 Signed Impressions: Service Date/Time: May 19:38 - CONCLUSION: Patchy opacities within the lung bases bilaterally and right mid lung field consistent with probable pneumonia. Clinical correlation is recommended. Martin Jones MD Course V/Q scan low probab of PE,CT thorax pneumonia superimposed on interstitial disease Caprini VTE Risk Assessment Caprini VTE Risk Assessment: Mod/High Risk (score >= 2) Caprini Risk Assessment Model Point Value = 1 Point Value = 2 Point Value = 3 Point Value = 5 Age 41-60 Minor surgery BMI > 25 kg/m2 Swollen legs Varicose veins or History of unexplained or recurrent spontaneous Oral contraceptives or hormone replacement Sepsis (< 1 month) Serious lung disease, including pneumonia (< 1 month) Abnormal pulmonary function Acute myocardial infarction Congestive heart failure (< 1 month) History of inflammatory bowel disease Medical patient at bed rest Age 61-74 Arthroscopic surgery Major open surgery (> 45 min) Laparoscopic surgery (> 45 min) Malignancy Confined to bed (> 72 hours) Immobilizing plaster cast Central venous access Age >= 75 History of VTE Family history of VTE Factor V Leiden Prothrombin [id number] Lupus anticoagulant Anticardiolipin antibodies Elevated serum homocysteine Heparin-induced thrombocytopenia Other congenital or acquired thrombophilia Stroke (< 1 month) Elective arthroplasty Hip, pelvis, or leg fracture Acute spinal cord injury (< 1 month) Prophylaxis Regimen Total Risk Factor Score Risk Level Prophylaxis Regimen 0-1 Low Early ambulation 2 Moderate Order ONE of the following: *Sequential Compression Device (SCD) *Heparin 5000 units SQ BID 3-4 Higher Order ONE of the following medications: *Heparin 5000 units SQ TID *Enoxaparin/Lovenox 40 mg SQ daily (WT < 150 kg, CrCl > 30 mL/min) *Enoxaparin/Lovenox 30 mg SQ daily (WT < 150 kg, CrCl > 10-29 mL/min) *Enoxaparin/Lovenox 30 mg SQ BID (WT < 150 kg, CrCl > 30 mL/min) AND/OR *Sequential Compression Device (SCD) 5 or more Highest Order ONE of the following medications: *Heparin 5000 units SQ TID (Preferred with Epidurals) *Enoxaparin/Lovenox 40 mg SQ daily (WT < 150 kg, CrCl > 30 mL/min) *Enoxaparin/Lovenox 30 mg SQ daily (WT < 150 kg, CrCl > 10-29 mL/min) *Enoxaparin/Lovenox 30 mg SQ BID (WT < 150 kg, CrCl > 30 mL/min) AND *Sequential Compression Device (SCD) Assessment and Plan Problem List: (1) Pneumonia ICD Codes: J18.9 - Pneumonia, unspecified organism Status: Acute Plan: patient with pneumonia on CT started on vancomycin and Zosyn (2) Severe sepsis ICD Codes: A41.9 - Sepsis, unspecified organism; R65.20 - Severe sepsis without septic shock Status: Acute Plan: sepsis based on lactic acid repeat normalizing after starting of antibiotics,blood cultures ordered follow up labs Assessment and Plan further plan as case develops ,of note when patient was seen on 05/08/17 they gave him Nub treatment which did help him will continue for now also continue oxygen Code Status full Discussed Condition With patient and Physician Certification 2 Midnight Certification Type: Admission for Inpatient Services Order for Inpatient Services The services are ordered in accordance with Medicare regulations or non- Medicare payer requirements, as applicable. In the case of services not specified as inpatient-only, they are appropriately provided as inpatient services in accordance with the 2-midnight benchmark. Estimated LOS (days): 3 3 days is the estimated time the patient will need to remain in the hospital, assuming treatment plan goals are met and no additional complications. Post-Hospital Plan: Not yet determined Gui Rae MD May 16, 2017 00:13
[2017-05-16] MEDS ORDERED: LACTULOSE SYRUP 20 GM/30 ML CUP PO PRN (00:15)
[2017-05-16] MEDS ORDERED: SODIUM CHLORIDE 0.9% FLUSH 10 ML FLUSH IV FLUSH PRN (00:15)
[2017-05-16] MEDS ORDERED: ONDANSETRON HCL 4 MG/2 ML VIAL IVP PRN (00:15)
[2017-05-16] MEDS ORDERED: BISACODYL 10 MG SUPP RECTAL PRN (00:15)
[2017-05-16] MEDS ORDERED: Vancomycin Consult Pharmacy 1 EA OTHER SCH (00:15)
[2017-05-16] MEDS ORDERED: NALOXONE HCL 0.4 MG/ML AMP IV PUSH PRN (00:15)
[2017-05-16] MEDS ORDERED: SENNOSIDES 8.6 MG TAB PO PRN (00:15)
[2017-05-16] MEDS ORDERED: ACETAMINOPHEN 325 MG TAB PO PRN (00:15)
[2017-05-16] MEDS ORDERED: MAGNESIUM HYDROXIDE SUSP 30 ML CUP PO PRN (00:15)
[2017-05-16] MEDS ORDERED: VANCOMYCIN INJ 700 MG in SODIUM CHLOR 0.9% 250 ML INJ 250 ML IV SCH (01:00)
[2017-05-16] MEDS: TEMAZEPAM 15 MG CAP PO PRN ×2 (01:12→21:32)
[2017-05-16] MEDS: SODIUM CHLOR 0.45% 1000 ML INJ 1,000 ML IV SCH ×2 (01:15→14:16)
[2017-05-16] MEDS: PIPERACIL-TAZO 3.375 GM PREMIX 50 ML IV SCH ×3 (05:07→18:24)
[2017-05-16 07:30] LABS: AUTOMATED NEUTROPHIL # 7.1 TH/MM3 (1.8-7.7); BASOPHIL # 0.1 TH/MM3 (0-0.2); BASOPHIL % 0.9 % (0.0-2.0); EOSINOPHIL # 0.4 TH/MM3 (0-0.4); EOSINOPHIL % 3.4 % (0.0-4.0); HEMATOCRIT 35.6 % (39.0-51.0); LYMPH % 20.3 % (9.0-44.0); LYMPHOCYTE # 2.1 TH/MM3 (1.0-4.8); MEAN CORPUSCULAR HEMOGLOBIN 29.7 PG (27.0-34.0); MEAN CORPUSCULAR HGB CONC 33.7 % (32.0-36.0); MEAN PLATELET VOLUME 6.9 FL (7.0-11.0); MONOCYTE # 0.7 TH/MM3 (0-0.9); NEUT % 68.4 % (16.0-70.0); PLATELET COUNT 237 TH/MM3 (150-450); RED BLOOD COUNT 4.04 MIL/MM3 (4.50-5.90); RED CELL DISTRIBUTION WIDTH 14.3 % (11.6-17.2); WHITE BLOOD COUNT 10.4 TH/MM3 (4.0-11.0)
[2017-05-16 08:03] LABS: BICARBONATE 20.7 MEQ/L (21.0-32.0); CALCIUM 8.3 MG/DL (8.5-10.1); CREATININE 1.26 MG/DL (0.60-1.30)
[2017-05-16 08:37] LABS: BANDS 8 % (0-6); LYMPHOCYTES 20 % (9-44); METAMYELOCYTES 1 % (0-1); MONOCYTES 2 % (0-8); MYELOCYTES 4 % (0-0); POLYS (SEG NEUTROPHILS) 64 % (16-70)
[2017-05-16] MEDS: SODIUM CHLORIDE 0.9% FLUSH 10 ML FLUSH IV FLUSH SCH ×2 (09:00→21:33)
[2017-05-16] MEDS ORDERED: INFLUENZA VIRUS VACCINE (QUADRIVALENT) 0.5 ML SYR IM ONE (09:00)
[2017-05-16] MEDS: FLUoxetine HCL 20 MG CAP PO SCH (09:55)
[2017-05-16] MEDS: CALCIUM/VITAMIN D 250 MG/125 U TAB PO SCH ×2 (09:55→21:33)
[2017-05-16] MEDS: FENOFIBRATE 145 MG TAB PO SCH (09:55)
[2017-05-16] MEDS: DOCUSATE SODIUM 50 MG/SENNA 8.6 MG TAB PO SCH ×2 (09:56→21:00)
[2017-05-16] MEDS: LISINOPRIL 20 MG TAB PO SCH (09:56)
[2017-05-16] MEDS: ASPIRIN 81 MG CHEW TAB CHEW SCH (09:57)
--- NOTE | 2017-05-16 12:40 | HHI.PR ---
Subjective Remarks Patient with worsening SOB since March. Patient's SOB is worse with ambulation. He is now unable to walk from room to room in his house without becoming severely SOB. Patient has a history of probable pulmonary fibrosis has seen Jason Medrano in the past, but per patient has not followed up as he was instructed. Patient endorses non productive cough worse than baseline. Two weeks ago patient was treated for Flu with Tamiflu x 5 days. Patient currently on 4 L NC Objective Vitals Vital Signs Date Time Temp Pulse Resp B/P (MAP) Pulse Ox O2 Delivery O2 Flow Rate FiO2 05/16/17 12:01 97.4 65 20 113/60 (77) 96 05/16/17 08:07 97.4 73 20 124/59 (80) 94 05/16/17 05:35 98.2 66 18 135/61 (85) 96 05/16/17 03:49 78 05/16/17 00:00 98.7 71 18 132/60 (84) 98 05/15/17 23:01 84 16 156/67 (96) 97 Nasal Cannula 4.00 05/15/17 22:08 74 16 116/56 (76) 98 Nasal Cannula 4.00 05/15/17 20:26 86 14 128/58 (81) 99 Nasal Cannula 4.00 05/15/17 19:09 99 Nasal Cannula 2.00 05/15/17 19:08 98 Nasal Cannula 2.00 05/15/17 19:08 98 Nasal Cannula 2.00 05/15/17 19:04 97.7 90 34 102/55 (71) 97 Result Diagram: 05/16/17 0616 05/16/17 0616 Other Results Laboratory Tests Test 05/15/17 19:10 05/15/17 19:12 05/15/17 19:43 05/15/17 21:05 White Blood Count 13.8 TH/MM3 Red Blood Count 5.05 MIL/MM3 Hemoglobin 14.8 GM/DL Hematocrit 43.9 % Mean Corpuscular Volume 86.8 FL Mean Corpuscular Hemoglobin 29.4 PG Mean Corpuscular Hemoglobin Concent 33.8 % Red Cell Distribution Width 14.1 % Platelet Count 369 TH/MM3 Mean Platelet Volume 7.2 FL Neutrophils (%) (Auto) 74.1 % Lymphocytes (%) (Auto) 18.5 % Monocytes (%) (Auto) 5.1 % Eosinophils (%) (Auto) 1.7 % Basophils (%) (Auto) 0.6 % Neutrophils # (Auto) 10.2 TH/MM3 Lymphocytes # (Auto) 2.6 TH/MM3 Monocytes # (Auto) 0.7 TH/MM3 Eosinophils # (Auto) 0.2 TH/MM3 Basophils # (Auto) 0.1 TH/MM3 CBC Comment AUTO DIFF Differential Total Cells Counted 100 Neutrophils % (Manual) 55 % Band Neutrophils % 8 % Lymphocytes % 15 % Monocytes % 5 % Eosinophils % 2 % Neutrophils # (Manual) 10.8 TH/MM3 Metamyelocytes 5 % Myelocytes 3 % Promyelocytes 7 % Differential Comment FINAL DIFF MANUAL Atypical Lymphocytes % Platelet Estimate NORMAL Platelet Morphology Comment NORMAL Prothrombin Time 10.5 SEC Prothromb Time International Ratio 1.0 RATIO Activated Partial Thromboplast Time 24.2 SEC Blood Urea Nitrogen 45 MG/DL Creatinine 1.84 MG/DL Random Glucose 86 MG/DL Total Protein 7.2 GM/DL Albumin 2.7 GM/DL Calcium Level 9.7 MG/DL Phosphorus Level 2.8 MG/DL Magnesium Level 2.2 MG/DL Alkaline Phosphatase 82 U/L Aspartate Amino Transf (AST/SGOT) 31 U/L Alanine Aminotransferase (ALT/SGPT) 55 U/L Total Bilirubin 0.2 MG/DL Sodium Level 132 MEQ/L Potassium Level 5.4 MEQ/L Chloride Level 102 MEQ/L Carbon Dioxide Level 19.9 MEQ/L Anion Gap 10 MEQ/L Estimat Glomerular Filtration Rate 36 ML/MIN Total Creatine Kinase 40 U/L Troponin I LESS THAN 0.02 NG/ML Lipase 1045 U/L Lactic Acid Level 4.3 mmol/L Blood Gas Puncture Site IV Blood Gas Patient Temperature 98.6 Venous Blood pH 7.51 Venous Blood Partial Pressure CO2 23 mmHg Venous Blood Partial Pressure O2 16 mmHg Venous Blood HCO3 18 mmol/L Venous Blood Oxygen Saturation 21 % Venous Blood Oxygen Content 4.2 Vol % Venous Blood Base Excess -4.6 mmol/L Oxygen Delivery Device NASAL CANNULA Blood Gas Liter Flow 4 L/M Urine Color YELLOW Urine Turbidity CLEAR Urine pH 5.5 Urine Specific [place] 1.015 Urine Protein NEG mg/dL Urine Glucose (UA) NEG mg/dL Urine Ketones NEG mg/dL Urine Occult Blood NEG Urine Nitrite NEG Urine Bilirubin NEG Urine Urobilinogen LESS THAN 2.0 MG/DL Urine Leukocyte Esterase NEG Urine RBC 1 /hpf Urine WBC 1 /hpf Urine Squamous Epithelial Cells <1 /hpf Urine Hyaline Casts 21 /lpf Urine Mucus FEW /lpf Microscopic Urinalysis Comment CATH-CULT NOT IND Test 05/15/17 21:58 05/16/17 06:16 Lactic Acid Level 1.8 mmol/L White Blood Count 10.4 TH/MM3 Red Blood Count 4.04 MIL/MM3 Hemoglobin 12.0 GM/DL Hematocrit 35.6 % Mean Corpuscular Volume 88.0 FL Mean Corpuscular Hemoglobin 29.7 PG Mean Corpuscular Hemoglobin Concent 33.7 % Red Cell Distribution Width 14.3 % Platelet Count 237 TH/MM3 Mean Platelet Volume 6.9 FL Neutrophils (%) (Auto) 68.4 % Lymphocytes (%) (Auto) 20.3 % Monocytes (%) (Auto) 7.0 % Eosinophils (%) (Auto) 3.4 % Basophils (%) (Auto) 0.9 % Neutrophils # (Auto) 7.1 TH/MM3 Lymphocytes # (Auto) 2.1 TH/MM3 Monocytes # (Auto) 0.7 TH/MM3 Eosinophils # (Auto) 0.4 TH/MM3 Basophils # (Auto) 0.1 TH/MM3 CBC Comment AUTO DIFF Differential Total Cells Counted 100 Neutrophils % (Manual) 64 % Band Neutrophils % 8 % Lymphocytes % 20 % Monocytes % 2 % Eosinophils % 1 % Neutrophils # (Manual) 8.0 TH/MM3 Metamyelocytes 1 % Myelocytes 4 % Differential Comment FINAL DIFF MANUAL Platelet Estimate NORMAL Platelet Morphology Comment NORMAL Red Cell Morphology Comment NORMAL Blood Urea Nitrogen 33 MG/DL Creatinine 1.26 MG/DL Random Glucose 95 MG/DL Calcium Level 8.3 MG/DL Sodium Level 139 MEQ/L Potassium Level 4.9 MEQ/L Chloride Level 109 MEQ/L Carbon Dioxide Level 20.7 MEQ/L Anion Gap 9 MEQ/L Estimat Glomerular Filtration Rate 56 ML/MIN Imaging Last 24 hours Impressions Chest X-Ray 05/15/171904 Signed Impressions: Service Date/Time: May 19:38 - CONCLUSION: Patchy opacities within the lung bases bilaterally and right mid lung field consistent with probable pneumonia. Clinical correlation is recommended. Martin Jones MD Last 24 hours Impressions Chest X-Ray 05/15/171904 Signed Impressions: Service Date/Time: May 19:38 - CONCLUSION: Patchy opacities within the lung bases bilaterally and right mid lung field consistent with probable pneumonia. Clinical correlation is recommended. Martin Jones MD Objective Remarks GENERAL: This is a well-nourished, well-developed patient, in no apparent distress. CARDIOVASCULAR: Regular rate and rhythm RESPIRATORY: faint crackles RLL GASTROINTESTINAL: Abdomen soft, non-tender, nondistended. Normal active bowel sounds MUSCULOSKELETAL: Extremities without clubbing, cyanosis, or edema. NEURO: Alert & Oriented x4 to person, place, time, situation. Moves all ext x4 A/P Problem List: (1) Pneumonia ICD Codes: J18.9 - Pneumonia, unspecified organism Status: Acute Plan: - patient with pneumonia - continue vancomycin and Zosyn with pharmacy to dose vancomycin - Duonebs - CXR reviewed and reveals: Patchy opacities within the lung bases bilaterally and right mid lung field consistent with probable pneumonia. - CT chest: scattered patchy opacities throughout both lungs consistent with probable pneumonia superimposed on chronic interstitial disease. Cardiomegaly in coronary artery calcifications feeling mildly prominent precarinal and AP window mediastinal lymphadenopathy which is nonspecific. 2.7 cm left adrenal nodule which is incompletely evaluated on this exam. - Lung VQ scan: Low probability for pulmonary embolism - Patient also has interstitial lung disease - solumedrol 60 mg Q6H (2) Severe sepsis ICD Codes: A41.9 - Sepsis, unspecified organism; R65.20 - Severe sepsis without septic shock Status: Acute Plan: sepsis based on lactic acid repeat normalizing after starting of antibiotics LA on admission 4.3 -> 1.8 blood cultures NGTD (3) Acute kidney injury superimposed on chronic kidney disease ICD Codes: N17.9 - Acute kidney failure, unspecified; N18.9 - Chronic kidney disease, unspecified Plan: BUN on admission 45 -> 33 (2/2) creatinine on admission 1.84 -> 1.26 (2/2) GFR on admission 36 -> 56 (2/2) Baseline renal function CKD stage 3 with GFR in the 50's, creatinine 1.3 and BUN 20's Initially patient on IV fluids for hydration, 2/2 DC continue to encourage PO fluid intake recheck BMP in AM (4) SOB (shortness of breath) ICD Codes: R06.02 - Shortness of breath Plan: Patient with worsening SOB since March. Patient's SOB is worse with ambulation. He is now unable to walk from room to room in his house without becoming severely SOB. Patient has a history of probable pulmonary fibrosis has seen Jason Medrano in the past, but per patient has not followed up as he was instructed. Patient endorses non productive cough worse than baseline. Two weeks ago patient was treated for Flu with Tamiflu x 5 days. Patient currently on 4 L NC - CT chest: scattered patchy opacities throughout both lungs consistent with probable pneumonia superimposed on chronic interstitial disease. Cardiomegaly in coronary artery calcifications feeling mildly prominent precarinal and AP window mediastinal lymphadenopathy which is nonspecific. 2.7 cm left adrenal nodule which is incompletely evaluated on this exam. Concern that SOB could be related to CAD CKMB and troponin Q6H x 3, if negative will obtain Lexiscan in AM serial EKG requested Outpatient records reviewed and patient did have an Echocardiogram 12/2016 which revealed LVH and EF of 55% Assessment and Plan Patient examined. Assessment and plan formulated with Paula Benítez PA-C. I agree with the above. Paula Benítez May 16, 2017 12:40 Ari Olivarez DO May 21, 2017 11:12
[2017-05-16] MEDS ORDERED: RESP: ALBUTEROL 2.5 MG/IPRATROPIUM 0.5 MG NEB (PRN) NEB (13:00)
[2017-05-16] MEDS: RESP: ALBUTEROL 2.5 MG/IPRATROPIUM 0.5 MG NEB (SCH) NEB ×2 (17:35→19:43)
[2017-05-16] MEDS: methylPREDNISolone SOD SUCC 125 MG/2 ML VIAL IV PUSH SCH ×2 (18:24→21:33)
[2017-05-16 18:33] LABS: TROPONIN I LESS THAN 0.02 NG/ML (0.02-0.05)
--- NOTE | 2017-05-16 18:55 | EKG ---
Date Performed: 05/15/2017 Time Performed: 19:18:06 PTAGE: 72 years EKG: Sinus rhythm NORMAL ECG NO PREVIOUS TRACING DOCTOR: Tom Lozada Interpretating Date/Time 05/16/2017 18:55:23
[2017-05-16] MEDS ORDERED: VANCOMYCIN INJ 1,250 MG in SODIUM CHLOR 0.9% 250 ML INJ 250 ML IV SCH (20:00)
[2017-05-16] MEDS ORDERED: CALCIUM CARBONATE 500 MG CHEWABLE TAB PO PRN (20:15)
[2017-05-16] MEDS ORDERED: PANTOPRAZOLE SOD 40 MG DELAYED RELEASE TAB PO ONE (21:00)
[2017-05-16] MEDS: ATORVASTATIN 40 MG TAB PO SCH (21:32)
[2017-05-17] VITALS (12 sets, daily range): BP systolic 101–138; BP diastolic 54–77; PULSE 67–94; RESP 16–21; TEMP 97.6–99.1; O2SAT 95–98
[2017-05-17 00:19] LABS: TROPONIN I LESS THAN 0.02 NG/ML (0.02-0.05)
[2017-05-17] MEDS: PIPERACIL-TAZO 3.375 GM PREMIX 50 ML IV SCH ×5 (00:36→23:20)
[2017-05-17 04:39] LABS: TROPONIN I LESS THAN 0.02 NG/ML (0.02-0.05)
[2017-05-17] MEDS: methylPREDNISolone SOD SUCC 125 MG/2 ML VIAL IV PUSH SCH ×3 (05:34→21:02)
[2017-05-17] MEDS: FLUoxetine HCL 20 MG CAP PO SCH (08:40)
[2017-05-17] MEDS: FENOFIBRATE 145 MG TAB PO SCH (08:40)
[2017-05-17] MEDS: PANTOPRAZOLE SOD 40 MG DELAYED RELEASE TAB PO SCH (08:40)
[2017-05-17] MEDS: CALCIUM/VITAMIN D 250 MG/125 U TAB PO SCH ×3 (08:40→21:30)
[2017-05-17] MEDS: ASPIRIN 81 MG CHEW TAB CHEW SCH (08:40)
[2017-05-17] MEDS: SODIUM CHLORIDE 0.9% FLUSH 10 ML FLUSH IV FLUSH SCH ×2 (08:40→20:58)
[2017-05-17] MEDS: LISINOPRIL 20 MG TAB PO SCH (08:41)
[2017-05-17] MEDS: DOCUSATE SODIUM 50 MG/SENNA 8.6 MG TAB PO SCH ×2 (08:41→20:56)
[2017-05-17] MEDS: RESP: ALBUTEROL 2.5 MG/IPRATROPIUM 0.5 MG NEB (SCH) NEB ×3 (09:01→21:08)
--- NOTE | 2017-05-17 13:07 | HHI.PR ---
Subjective Remarks Patient reports breathing is much better today, very little coughing oxygen down to 2L Objective Vitals Vital Signs Date Time Temp Pulse Resp B/P (MAP) Pulse Ox O2 Delivery O2 Flow Rate FiO2 05/17/17 12:07 97.6 76 20 128/58 (81) 98 05/17/17 10:09 95 Nasal Cannula 4.00 05/17/17 08:06 97.7 67 21 101/54 (70) 97 05/17/17 04:00 99.1 74 20 128/66 (86) 98 05/17/17 04:00 94 05/17/17 00:00 97.6 68 20 138/77 (97) 96 05/17/17 00:00 86 05/16/17 20:00 75 05/16/17 20:00 99.4 79 20 147/73 (97) 97 05/16/17 19:43 99 Nasal Cannula 4.00 05/16/17 16:06 97.8 81 21 107/56 (73) 97 05/16/17 16:00 79 05/16/17 13:43 4.00 Result Diagram: 05/16/17 0616 05/16/17 0616 Other Results Laboratory Tests Test 05/15/17 19:10 05/15/17 19:12 05/15/17 19:43 05/15/17 21:05 White Blood Count 13.8 TH/MM3 Red Blood Count 5.05 MIL/MM3 Hemoglobin 14.8 GM/DL Hematocrit 43.9 % Mean Corpuscular Volume 86.8 FL Mean Corpuscular Hemoglobin 29.4 PG Mean Corpuscular Hemoglobin Concent 33.8 % Red Cell Distribution Width 14.1 % Platelet Count 369 TH/MM3 Mean Platelet Volume 7.2 FL Neutrophils (%) (Auto) 74.1 % Lymphocytes (%) (Auto) 18.5 % Monocytes (%) (Auto) 5.1 % Eosinophils (%) (Auto) 1.7 % Basophils (%) (Auto) 0.6 % Neutrophils # (Auto) 10.2 TH/MM3 Lymphocytes # (Auto) 2.6 TH/MM3 Monocytes # (Auto) 0.7 TH/MM3 Eosinophils # (Auto) 0.2 TH/MM3 Basophils # (Auto) 0.1 TH/MM3 CBC Comment AUTO DIFF Differential Total Cells Counted 100 Neutrophils % (Manual) 55 % Band Neutrophils % 8 % Lymphocytes % 15 % Monocytes % 5 % Eosinophils % 2 % Neutrophils # (Manual) 10.8 TH/MM3 Metamyelocytes 5 % Myelocytes 3 % Promyelocytes 7 % Differential Comment FINAL DIFF MANUAL Atypical Lymphocytes % Platelet Estimate NORMAL Platelet Morphology Comment NORMAL Prothrombin Time 10.5 SEC Prothromb Time International Ratio 1.0 RATIO Activated Partial Thromboplast Time 24.2 SEC Blood Urea Nitrogen 45 MG/DL Creatinine 1.84 MG/DL Random Glucose 86 MG/DL Total Protein 7.2 GM/DL Albumin 2.7 GM/DL Calcium Level 9.7 MG/DL Phosphorus Level 2.8 MG/DL Magnesium Level 2.2 MG/DL Alkaline Phosphatase 82 U/L Aspartate Amino Transf (AST/SGOT) 31 U/L Alanine Aminotransferase (ALT/SGPT) 55 U/L Total Bilirubin 0.2 MG/DL Sodium Level 132 MEQ/L Potassium Level 5.4 MEQ/L Chloride Level 102 MEQ/L Carbon Dioxide Level 19.9 MEQ/L Anion Gap 10 MEQ/L Estimat Glomerular Filtration Rate 36 ML/MIN Total Creatine Kinase 40 U/L Troponin I LESS THAN 0.02 NG/ML Lipase 1045 U/L Lactic Acid Level 4.3 mmol/L Blood Gas Puncture Site IV Blood Gas Patient Temperature 98.6 Venous Blood pH 7.51 Venous Blood Partial Pressure CO2 23 mmHg Venous Blood Partial Pressure O2 16 mmHg Venous Blood HCO3 18 mmol/L Venous Blood Oxygen Saturation 21 % Venous Blood Oxygen Content 4.2 Vol % Venous Blood Base Excess -4.6 mmol/L Oxygen Delivery Device NASAL CANNULA Blood Gas Liter Flow 4 L/M Urine Color YELLOW Urine Turbidity CLEAR Urine pH 5.5 Urine Specific [place] 1.015 Urine Protein NEG mg/dL Urine Glucose (UA) NEG mg/dL Urine Ketones NEG mg/dL Urine Occult Blood NEG Urine Nitrite NEG Urine Bilirubin NEG Urine Urobilinogen LESS THAN 2.0 MG/DL Urine Leukocyte Esterase NEG Urine RBC 1 /hpf Urine WBC 1 /hpf Urine Squamous Epithelial Cells <1 /hpf Urine Hyaline Casts 21 /lpf Urine Mucus FEW /lpf Microscopic Urinalysis Comment CATH-CULT NOT IND Test 05/15/17 21:58 05/16/17 06:16 05/16/17 17:33 05/16/17 23:42 Lactic Acid Level 1.8 mmol/L White Blood Count 10.4 TH/MM3 Red Blood Count 4.04 MIL/MM3 Hemoglobin 12.0 GM/DL Hematocrit 35.6 % Mean Corpuscular Volume 88.0 FL Mean Corpuscular Hemoglobin 29.7 PG Mean Corpuscular Hemoglobin Concent 33.7 % Red Cell Distribution Width 14.3 % Platelet Count 237 TH/MM3 Mean Platelet Volume 6.9 FL Neutrophils (%) (Auto) 68.4 % Lymphocytes (%) (Auto) 20.3 % Monocytes (%) (Auto) 7.0 % Eosinophils (%) (Auto) 3.4 % Basophils (%) (Auto) 0.9 % Neutrophils # (Auto) 7.1 TH/MM3 Lymphocytes # (Auto) 2.1 TH/MM3 Monocytes # (Auto) 0.7 TH/MM3 Eosinophils # (Auto) 0.4 TH/MM3 Basophils # (Auto) 0.1 TH/MM3 CBC Comment AUTO DIFF Differential Total Cells Counted 100 Neutrophils % (Manual) 64 % Band Neutrophils % 8 % Lymphocytes % 20 % Monocytes % 2 % Eosinophils % 1 % Neutrophils # (Manual) 8.0 TH/MM3 Metamyelocytes 1 % Myelocytes 4 % Differential Comment FINAL DIFF MANUAL Platelet Estimate NORMAL Platelet Morphology Comment NORMAL Red Cell Morphology Comment NORMAL Blood Urea Nitrogen 33 MG/DL Creatinine 1.26 MG/DL Random Glucose 95 MG/DL Calcium Level 8.3 MG/DL Sodium Level 139 MEQ/L Potassium Level 4.9 MEQ/L Chloride Level 109 MEQ/L Carbon Dioxide Level 20.7 MEQ/L Anion Gap 9 MEQ/L Estimat Glomerular Filtration Rate 56 ML/MIN Total Creatine Kinase 43 U/L 42 U/L Troponin I LESS THAN 0.02 NG/ML LESS THAN 0.02 NG/ML Test 05/17/17 03:25 Total Creatine Kinase 43 U/L Troponin I LESS THAN 0.02 NG/ML Imaging Last 24 hours Impressions Chest X-Ray 05/15/171904 Signed Impressions: Service Date/Time: May 19:38 - CONCLUSION: Patchy opacities within the lung bases bilaterally and right mid lung field consistent with probable pneumonia. Clinical correlation is recommended. Martin Jones MD Last 24 hours Impressions Chest X-Ray 05/15/171904 Signed Impressions: Service Date/Time: May 19:38 - CONCLUSION: Patchy opacities within the lung bases bilaterally and right mid lung field consistent with probable pneumonia. Clinical correlation is recommended. Martin Jones MD Objective Remarks GENERAL: This is a well-nourished, well-developed patient, in no apparent distress. CARDIOVASCULAR: Regular rate and rhythm RESPIRATORY: clear GASTROINTESTINAL: Abdomen soft, non-tender, nondistended. Normal active bowel sounds MUSCULOSKELETAL: Extremities without clubbing, cyanosis, or edema. NEURO: Alert & Oriented x4 to person, place, time, situation. Moves all ext x4 A/P Problem List: (1) Pneumonia ICD Codes: J18.9 - Pneumonia, unspecified organism Status: Acute Plan: - patient with pneumonia - vancomyacin (2/2 - 2/) - Zosyn ( 2/- present) - Duonebs Q6H while awake and PRN - CXR reviewed and reveals: Patchy opacities within the lung bases bilaterally and right mid lung field consistent with probable pneumonia. - CT chest: scattered patchy opacities throughout both lungs consistent with probable pneumonia superimposed on chronic interstitial disease. Cardiomegaly in coronary artery calcifications feeling mildly prominent precarinal and AP window mediastinal lymphadenopathy which is nonspecific. 2.7 cm left adrenal nodule which is incompletely evaluated on this exam. - Lung VQ scan: Low probability for pulmonary embolism - Patient also has interstitial lung disease - solumedrol 60 mg Q6H (2/ ) (2) Severe sepsis ICD Codes: A41.9 - Sepsis, unspecified organism; R65.20 - Severe sepsis without septic shock Status: Acute Plan: sepsis based on lactic acid repeat normalizing after starting of antibiotics LA on admission 4.3 -> 1.8 blood cultures NGTD (3) Acute kidney injury superimposed on chronic kidney disease ICD Codes: N17.9 - Acute kidney failure, unspecified; N18.9 - Chronic kidney disease, unspecified Plan: BUN on admission 45 -> 33 (2/2) creatinine on admission 1.84 -> 1.26 (2/2) GFR on admission 36 -> 56 (2/2) Baseline renal function CKD stage 3 with GFR in the 50's, creatinine 1.3 and BUN 20's Initially patient on IV fluids for hydration, 2/2 DC continue to encourage PO fluid intake recheck BMP for today pending, also check in AM (4) SOB (shortness of breath) ICD Codes: R06.02 - Shortness of breath Plan: Patient with worsening SOB since March. Patient's SOB is worse with ambulation. He is now unable to walk from room to room in his house without becoming severely SOB. Patient has a history of probable pulmonary fibrosis has seen Jason Medrano in the past, but per patient has not followed up as he was instructed. Patient endorses non productive cough worse than baseline. Two weeks ago patient was treated for Flu with Tamiflu x 5 days. Patient currently on 4 L NC - CT chest: scattered patchy opacities throughout both lungs consistent with probable pneumonia superimposed on chronic interstitial disease. Cardiomegaly in coronary artery calcifications feeling mildly prominent precarinal and AP window mediastinal lymphadenopathy which is nonspecific. 2.7 cm left adrenal nodule which is incompletely evaluated on this exam. Concern that SOB could be related to CAD CKMB and troponin Q6H x 3 Lexiscan pending serial EKG completed SR Outpatient records reviewed and patient did have an Echocardiogram 12/2016 which revealed LVH and EF of 55% Assessment and Plan Patient examined. Assessment and plan formulated with Paula Benítez PA-C. I agree with the above. Paula Benítez May 17, 2017 13:07 Ari Olivarez DO May 21, 2017 11:13
[2017-05-17] MEDS ORDERED: REGADENOSON INJ 0.4 MG/5 ML SYR ONE (14:44)
--- NOTE | 2017-05-17 16:01 | RADRPT ---
EXAM DATE/TIME: 05/17/2017 14:11 [facility] COMPARISON: No previous studies available for comparison. INDICATIONS : Coronary atherosclerosis. DOSE: 25.8 mCi Tc99m Myoview at stress. 8.8 mCi Tc99m Myoview at rest. 0.4 mg Lexiscan STRESS SYMPTOMS: Shortness of breath, head pressure. EJECTION FRACTION: > 70% MEDICAL HISTORY : Hypertension. SURGICAL HISTORY : Left shoulder surgery. ENCOUNTER: Initial ACUITY: 1 day PAIN SCALE: 2/10 LOCATION: Bilateral chest TECHNIQUE: The patient underwent pharmacologic stress with infusion of prescribed dose. Continuous ECG tracing was monitored during stress. Gated SPECT imaging was performed after stress and conventional SPECT i maging was performed at rest. The examination was performed on a SPECT/CT scanner, both attenuation and non-corrected datasets were reviewed. FINDINGS: DISTRIBUTION: The maximum perfused segment at stress is in the anterolateral wall. PERFUSION STUDY: The pattern of perfusion at stress demonstrates reduction in perfusion to inferoapical wall which dem onstrate redistribution during rest, however evaluation of the spine of the myocardium is somewhat li mited due to bowel activity. GATED STUDY: There is intact wall motion and thickening without hypokinetic or dyskinetic segments. CONCLUSION: Questionable slight ischemia inferoapical wall. RISK CATEGORY: Low (<1% Annual Mortality Rate) Adrien Rosado MD on May 17, 2017 at 15:57 Board Certified Radiologist. This report was verified electronically.
[2017-05-17 18:24] LABS: AUTOMATED NEUTROPHIL # 12.9 TH/MM3 (1.8-7.7); BASOPHIL % 0.1 % (0.0-2.0); HEMATOCRIT 36.9 % (39.0-51.0); HEMOGLOBIN 12.4 GM/DL (13.0-17.0); LYMPH % 4.6 % (9.0-44.0); LYMPHOCYTE # 0.6 TH/MM3 (1.0-4.8); MEAN CELL VOLUME 88.9 FL (80.0-100.0); MEAN CORPUSCULAR HEMOGLOBIN 29.9 PG (27.0-34.0); MEAN CORPUSCULAR HGB CONC 33.6 % (32.0-36.0); MONO % 1.8 % (0.0-8.0); MONOCYTE # 0.3 TH/MM3 (0-0.9); NEUT % 93.5 % (16.0-70.0); PLATELET COUNT 262 TH/MM3 (150-450); RED BLOOD COUNT 4.16 MIL/MM3 (4.50-5.90); RED CELL DISTRIBUTION WIDTH 14.4 % (11.6-17.2); WHITE BLOOD COUNT 13.8 TH/MM3 (4.0-11.0)
[2017-05-17 18:53] LABS: BICARBONATE 22.5 MEQ/L (21.0-32.0); CALCIUM 9.4 MG/DL (8.5-10.1); CREATININE 1.48 MG/DL (0.60-1.30)
[2017-05-17] MEDS: ATORVASTATIN 40 MG TAB PO SCH (20:56)
[2017-05-17] MEDS: TEMAZEPAM 15 MG CAP PO PRN (20:57)
[2017-05-18] VITALS (8 sets, daily range): BP systolic 103–120; BP diastolic 54–59; PULSE 64–92; RESP 16–21; TEMP 97.1–97.7; O2SAT 94–97
[2017-05-18] MEDS: metroNIDAZOLE 500 MG TAB PO SCH ×3 (01:56→13:51)
[2017-05-18] MEDS: PIPERACIL-TAZO 3.375 GM PREMIX 50 ML IV SCH ×2 (05:33→11:54)
[2017-05-18] MEDS: methylPREDNISolone SOD SUCC 125 MG/2 ML VIAL IV PUSH SCH (05:34)
[2017-05-18 07:13] LABS: AUTOMATED NEUTROPHIL # 15.1 TH/MM3 (1.8-7.7); BASOPHIL % 0.1 % (0.0-2.0); HEMATOCRIT 34.5 % (39.0-51.0); HEMOGLOBIN 11.6 GM/DL (13.0-17.0); LYMPH % 4.6 % (9.0-44.0); LYMPHOCYTE # 0.8 TH/MM3 (1.0-4.8); MEAN CELL VOLUME 87.7 FL (80.0-100.0); MEAN CORPUSCULAR HEMOGLOBIN 29.5 PG (27.0-34.0); MEAN CORPUSCULAR HGB CONC 33.6 % (32.0-36.0); MONO % 3.1 % (0.0-8.0); MONOCYTE # 0.5 TH/MM3 (0-0.9); NEUT % 92.2 % (16.0-70.0); PLATELET COUNT 254 TH/MM3 (150-450); RED BLOOD COUNT 3.94 MIL/MM3 (4.50-5.90); WHITE BLOOD COUNT 16.4 TH/MM3 (4.0-11.0)
[2017-05-18 07:39] LABS: BICARBONATE 24.7 MEQ/L (21.0-32.0); CALCIUM 8.6 MG/DL (8.5-10.1); CREATININE 1.2 MG/DL (0.60-1.30)
[2017-05-18] MEDS ORDERED: PHARMACY ORDERED LAB ONE (07:45)
[2017-05-18] MEDS: DOCUSATE SODIUM 50 MG/SENNA 8.6 MG TAB PO SCH (07:53)
[2017-05-18] MEDS: SODIUM CHLORIDE 0.9% FLUSH 10 ML FLUSH IV FLUSH SCH (07:53)
[2017-05-18] MEDS: ASPIRIN 81 MG CHEW TAB CHEW SCH (07:53)
[2017-05-18] MEDS: LISINOPRIL 20 MG TAB PO SCH (07:53)
[2017-05-18] MEDS: FLUoxetine HCL 20 MG CAP PO SCH (07:53)
[2017-05-18] MEDS: FENOFIBRATE 145 MG TAB PO SCH (07:54)
[2017-05-18] MEDS: PANTOPRAZOLE SOD 40 MG DELAYED RELEASE TAB PO SCH (07:54)
[2017-05-18] MEDS: CALCIUM/VITAMIN D 250 MG/125 U TAB PO SCH (07:54)
[2017-05-18] MEDS: RESP: ALBUTEROL 2.5 MG/IPRATROPIUM 0.5 MG NEB (SCH) NEB ×2 (07:57→12:05)
--- NOTE | 2017-05-18 12:00 | RADRPT ---
EXAM DATE/TIME: 05/18/2017 10:09 [facility] COMPARISON: CHEST SINGLE AP, May 15, 2017, 19:38. INDICATIONS : Shortness of breath. MEDICAL HISTORY : Hypertension. SURGICAL HISTORY : None. ENCOUNTER: Subsequent ACUITY: 1 day PAIN SCORE: 0/10 LOCATION: Bilateral chest FINDINGS: A single view of the chest demonstrates patchy densities in the lower lobes. Heart normal in size. Th e cardiomediastinal contours are unremarkable. Osseous structures are intact. CONCLUSION: Bibasilar patchy infiltrates not significantly changed. Axel Hernandez MD on May 18, 2017 at 11:58 Board Certified Radiologist. This report was verified electronically.
--- NOTE | 2017-05-18 13:20 | EKG ---
Date Performed: 05/16/2017 Time Performed: 22:14:09 PTAGE: 72 years EKG: Sinus rhythm NORMAL ECG Since PREVIOUS TRACING , no significant change noted PREVIOUS TRACIN05/16/2017 18.08 DOCTOR: Elio Espinoza Interpretating Date/Time 05/18/2017 13:20:29
--- NOTE | 2017-05-18 13:20 | EKG ---
Date Performed: 05/16/2017 Time Performed: 18:08:59 PTAGE: 72 years EKG: Sinus rhythm NORMAL ECG Since PREVIOUS TRACING , no significant change noted PREVIOUS TRACIN05/15/2017 19.18 DOCTOR: Elio Espinoza Interpretating Date/Time 05/18/2017 13:20:18
--- NOTE | 2017-05-18 13:21 | EKG ---
Date Performed: 05/17/2017 Time Performed: 03:35:06 PTAGE: 72 years EKG: Sinus rhythm Normal ECG Since PREVIOUS TRACING , no significant change noted PREVIOUS TRACIN05/16/2017 22.14 DOCTOR: Elio Espinoza Interpretating Date/Time 05/18/2017 13:20:38
--- NOTE | 2017-05-18 13:34 | HHI.PR ---
Subjective Remarks Patient with C Diff reports 1 stool today described as soft serve ice cream breathing much better cough resolved Objective Vitals Vital Signs Date Time Temp Pulse Resp B/P (MAP) Pulse Ox O2 Delivery O2 Flow Rate FiO2 05/18/17 08:07 97.4 64 21 120/58 (78) 97 05/18/17 08:00 Nasal Cannula 2.00 05/18/17 08:00 69 05/18/17 07:59 Nasal Cannula 2.00 05/18/17 04:07 64 05/18/17 04:00 97.3 67 16 111/54 (73) 97 05/18/17 00:04 78 05/18/17 00:00 97.7 82 16 110/59 (76) 97 05/17/17 21:09 97 Nasal Cannula 2.00 05/17/17 20:16 86 05/17/17 20:00 98.3 90 16 119/62 (81) 98 05/17/17 19:45 Nasal Cannula 2.00 05/17/17 16:06 97.6 84 21 133/65 (87) 97 05/17/17 16:00 86 05/17/17 16:00 Nasal Cannula 2.00 Result Diagram: 05/18/17 0637 05/18/17 0637 Other Results Laboratory Tests Test 05/15/17 19:10 05/15/17 19:12 05/15/17 19:43 05/15/17 21:05 White Blood Count 13.8 TH/MM3 Red Blood Count 5.05 MIL/MM3 Hemoglobin 14.8 GM/DL Hematocrit 43.9 % Mean Corpuscular Volume 86.8 FL Mean Corpuscular Hemoglobin 29.4 PG Mean Corpuscular Hemoglobin Concent 33.8 % Red Cell Distribution Width 14.1 % Platelet Count 369 TH/MM3 Mean Platelet Volume 7.2 FL Neutrophils (%) (Auto) 74.1 % Lymphocytes (%) (Auto) 18.5 % Monocytes (%) (Auto) 5.1 % Eosinophils (%) (Auto) 1.7 % Basophils (%) (Auto) 0.6 % Neutrophils # (Auto) 10.2 TH/MM3 Lymphocytes # (Auto) 2.6 TH/MM3 Monocytes # (Auto) 0.7 TH/MM3 Eosinophils # (Auto) 0.2 TH/MM3 Basophils # (Auto) 0.1 TH/MM3 CBC Comment AUTO DIFF Differential Total Cells Counted 100 Neutrophils % (Manual) 55 % Band Neutrophils % 8 % Lymphocytes % 15 % Monocytes % 5 % Eosinophils % 2 % Neutrophils # (Manual) 10.8 TH/MM3 Metamyelocytes 5 % Myelocytes 3 % Promyelocytes 7 % Differential Comment FINAL DIFF MANUAL Atypical Lymphocytes % Platelet Estimate NORMAL Platelet Morphology Comment NORMAL Prothrombin Time 10.5 SEC Prothromb Time International Ratio 1.0 RATIO Activated Partial Thromboplast Time 24.2 SEC Blood Urea Nitrogen 45 MG/DL Creatinine 1.84 MG/DL Random Glucose 86 MG/DL Total Protein 7.2 GM/DL Albumin 2.7 GM/DL Calcium Level 9.7 MG/DL Phosphorus Level 2.8 MG/DL Magnesium Level 2.2 MG/DL Alkaline Phosphatase 82 U/L Aspartate Amino Transf (AST/SGOT) 31 U/L Alanine Aminotransferase (ALT/SGPT) 55 U/L Total Bilirubin 0.2 MG/DL Sodium Level 132 MEQ/L Potassium Level 5.4 MEQ/L Chloride Level 102 MEQ/L Carbon Dioxide Level 19.9 MEQ/L Anion Gap 10 MEQ/L Estimat Glomerular Filtration Rate 36 ML/MIN Total Creatine Kinase 40 U/L Troponin I LESS THAN 0.02 NG/ML Lipase 1045 U/L Lactic Acid Level 4.3 mmol/L Blood Gas Puncture Site IV Blood Gas Patient Temperature 98.6 Venous Blood pH 7.51 Venous Blood Partial Pressure CO2 23 mmHg Venous Blood Partial Pressure O2 16 mmHg Venous Blood HCO3 18 mmol/L Venous Blood Oxygen Saturation 21 % Venous Blood Oxygen Content 4.2 Vol % Venous Blood Base Excess -4.6 mmol/L Oxygen Delivery Device NASAL CANNULA Blood Gas Liter Flow 4 L/M Urine Color YELLOW Urine Turbidity CLEAR Urine pH 5.5 Urine Specific [place] 1.015 Urine Protein NEG mg/dL Urine Glucose (UA) NEG mg/dL Urine Ketones NEG mg/dL Urine Occult Blood NEG Urine Nitrite NEG Urine Bilirubin NEG Urine Urobilinogen LESS THAN 2.0 MG/DL Urine Leukocyte Esterase NEG Urine RBC 1 /hpf Urine WBC 1 /hpf Urine Squamous Epithelial Cells <1 /hpf Urine Hyaline Casts 21 /lpf Urine Mucus FEW /lpf Microscopic Urinalysis Comment CATH-CULT NOT IND Test 05/15/17 21:58 05/16/17 06:16 05/16/17 17:33 05/16/17 23:42 Lactic Acid Level 1.8 mmol/L White Blood Count 10.4 TH/MM3 Red Blood Count 4.04 MIL/MM3 Hemoglobin 12.0 GM/DL Hematocrit 35.6 % Mean Corpuscular Volume 88.0 FL Mean Corpuscular Hemoglobin 29.7 PG Mean Corpuscular Hemoglobin Concent 33.7 % Red Cell Distribution Width 14.3 % Platelet Count 237 TH/MM3 Mean Platelet Volume 6.9 FL Neutrophils (%) (Auto) 68.4 % Lymphocytes (%) (Auto) 20.3 % Monocytes (%) (Auto) 7.0 % Eosinophils (%) (Auto) 3.4 % Basophils (%) (Auto) 0.9 % Neutrophils # (Auto) 7.1 TH/MM3 Lymphocytes # (Auto) 2.1 TH/MM3 Monocytes # (Auto) 0.7 TH/MM3 Eosinophils # (Auto) 0.4 TH/MM3 Basophils # (Auto) 0.1 TH/MM3 CBC Comment AUTO DIFF Differential Total Cells Counted 100 Neutrophils % (Manual) 64 % Band Neutrophils % 8 % Lymphocytes % 20 % Monocytes % 2 % Eosinophils % 1 % Neutrophils # (Manual) 8.0 TH/MM3 Metamyelocytes 1 % Myelocytes 4 % Differential Comment FINAL DIFF MANUAL Platelet Estimate NORMAL Platelet Morphology Comment NORMAL Red Cell Morphology Comment NORMAL Blood Urea Nitrogen 33 MG/DL Creatinine 1.26 MG/DL Random Glucose 95 MG/DL Calcium Level 8.3 MG/DL Sodium Level 139 MEQ/L Potassium Level 4.9 MEQ/L Chloride Level 109 MEQ/L Carbon Dioxide Level 20.7 MEQ/L Anion Gap 9 MEQ/L Estimat Glomerular Filtration Rate 56 ML/MIN Total Creatine Kinase 43 U/L 42 U/L Troponin I LESS THAN 0.02 NG/ML LESS THAN 0.02 NG/ML Test 05/17/17 03:25 05/17/17 17:05 05/17/17 17:36 05/18/17 06:37 Total Creatine Kinase 43 U/L Troponin I LESS THAN 0.02 NG/ML Stool C. difficile Toxin (PCR) POSITIVE Stl C. difficile Toxin Epiderm 027 PRESUMPTIVE NEGATIVE White Blood Count 13.8 TH/MM3 16.4 TH/MM3 Red Blood Count 4.16 MIL/MM3 3.94 MIL/MM3 Hemoglobin 12.4 GM/DL 11.6 GM/DL Hematocrit 36.9 % 34.5 % Mean Corpuscular Volume 88.9 FL 87.7 FL Mean Corpuscular Hemoglobin 29.9 PG 29.5 PG Mean Corpuscular Hemoglobin Concent 33.6 % 33.6 % Red Cell Distribution Width 14.4 % 14.0 % Platelet Count 262 TH/MM3 254 TH/MM3 Mean Platelet Volume 7.0 FL 7.0 FL Neutrophils (%) (Auto) 93.5 % 92.2 % Lymphocytes (%) (Auto) 4.6 % 4.6 % Monocytes (%) (Auto) 1.8 % 3.1 % Eosinophils (%) (Auto) 0.0 % 0.0 % Basophils (%) (Auto) 0.1 % 0.1 % Neutrophils # (Auto) 12.9 TH/MM3 15.1 TH/MM3 Lymphocytes # (Auto) 0.6 TH/MM3 0.8 TH/MM3 Monocytes # (Auto) 0.3 TH/MM3 0.5 TH/MM3 Eosinophils # (Auto) 0.0 TH/MM3 0.0 TH/MM3 Basophils # (Auto) 0.0 TH/MM3 0.0 TH/MM3 CBC Comment DIFF FINAL DIFF FINAL Differential Comment Blood Urea Nitrogen 21 MG/DL 24 MG/DL Creatinine 1.48 MG/DL 1.20 MG/DL Random Glucose 143 MG/DL 140 MG/DL Calcium Level 9.4 MG/DL 8.6 MG/DL Sodium Level 138 MEQ/L 140 MEQ/L Potassium Level 4.5 MEQ/L 4.9 MEQ/L Chloride Level 105 MEQ/L 107 MEQ/L Carbon Dioxide Level 22.5 MEQ/L 24.7 MEQ/L Anion Gap 11 MEQ/L 8 MEQ/L Estimat Glomerular Filtration Rate 47 ML/MIN 60 ML/MIN Imaging Last 24 hours Impressions Chest X-Ray 05/15/171904 Signed Impressions: Service Date/Time: May 19:38 - CONCLUSION: Patchy opacities within the lung bases bilaterally and right mid lung field consistent with probable pneumonia. Clinical correlation is recommended. Martin Jones MD Last 24 hours Impressions Chest X-Ray 05/15/171904 Signed Impressions: Service Date/Time: May 19:38 - CONCLUSION: Patchy opacities within the lung bases bilaterally and right mid lung field consistent with probable pneumonia. Clinical correlation is recommended. Martin Jones MD Objective Remarks GENERAL: This is a well-nourished, well-developed patient, in no apparent distress. CARDIOVASCULAR: Regular rate and rhythm RESPIRATORY: clear GASTROINTESTINAL: Abdomen soft, non-tender, nondistended. Normal active bowel sounds MUSCULOSKELETAL: Extremities without clubbing, cyanosis, or edema. NEURO: Alert & Oriented x4 to person, place, time, situation. Moves all ext x4 A/P Problem List: (1) Pneumonia ICD Codes: J18.9 - Pneumonia, unspecified organism Status: Acute Plan: - patient with pneumonia - vancomycin (05/16 - 05/16) - Zosyn ( 05/15- present) - Duonebs Q6H while awake and PRN - CXR reviewed and reveals: Patchy opacities within the lung bases bilaterally and right mid lung field consistent with probable pneumonia. - CT chest: scattered patchy opacities throughout both lungs consistent with probable pneumonia superimposed on chronic interstitial disease. Cardiomegaly in coronary artery calcifications feeling mildly prominent precarinal and AP window mediastinal lymphadenopathy which is nonspecific. 2.7 cm left adrenal nodule which is incompletely evaluated on this exam. - Lung VQ scan: Low probability for pulmonary embolism - Patient also has interstitial lung disease - solumedrol 60 mg Q8H (/ - 05/18) - PO prednisone 30 mg PO BID started (05/18) Patient asking to go home (2) Severe sepsis ICD Codes: A41.9 - Sepsis, unspecified organism; R65.20 - Severe sepsis without septic shock Status: Acute Plan: sepsis based on lactic acid repeat normalizing after starting of antibiotics LA on admission 4.3 -> 1.8 blood cultures NGTD (3) Acute kidney injury superimposed on chronic kidney disease ICD Codes: N17.9 - Acute kidney failure, unspecified; N18.9 - Chronic kidney disease, unspecified Plan: BUN on admission 45 -> 33 (2/2) creatinine on admission 1.84 -> 1.26 (2/2) -> 1.48 (2/3) -> 1.20 (2/4) GFR on admission 36 -> 56 (2/2) -> 60 (2/4) Baseline renal function CKD stage 3 with GFR in the 50's, creatinine 1.3 and BUN 20's Initially patient on IV fluids for hydration, 2/2 DC continue to encourage PO fluid intake (4) SOB (shortness of breath) ICD Codes: R06.02 - Shortness of breath Plan: Patient with worsening SOB since March. Patient's SOB is worse with ambulation. He is now unable to walk from room to room in his house without becoming severely SOB. Patient has a history of probable pulmonary fibrosis has seen Jason Medrano in the past, but per patient has not followed up as he was instructed. Patient endorses non productive cough worse than baseline. Two weeks ago patient was treated for Flu with Tamiflu x 5 days. Patient currently on 4 L NC - CT chest: scattered patchy opacities throughout both lungs consistent with probable pneumonia superimposed on chronic interstitial disease. Cardiomegaly in coronary artery calcifications feeling mildly prominent precarinal and AP window mediastinal lymphadenopathy which is nonspecific. 2.7 cm left adrenal nodule which is incompletely evaluated on this exam. Concern that SOB could be related to CAD CKMB and troponin Q6H x 3 Lexiscan (05/17) revealed Questionable slight ischemia inferoapical wall. Results discussed with patient by Dr. Olivarez. serial EKG completed SR Outpatient records reviewed and patient did have an Echocardiogram 12/2016 which revealed LVH and EF of 55% (5) C. difficile diarrhea ICD Codes: A04.72 - Enterocolitis due to Clostridium difficile, not specified as recurrent Plan: C diff positive Flagyl started (05/18) Assessment and Plan Patient examined. Assessment and plan formulated with Paula Benítez PA-C. I agree with the above. Paula Benítez May 18, 2017 13:33 Ari Olivarez DO May 21, 2017 11:13
[2017-05-18] MEDS ORDERED: METR-1 PO ×2 (14:59→15:10)
[2017-05-18] MEDS ORDERED: PRED10 PO (15:04)
[2017-05-18] MEDS ORDERED: OXYGEN NAS.CANULA (15:10)
[2017-05-18] MEDS ORDERED: OXYGENDME NAS.CANULA (15:10)
--- NOTE | 2017-05-18 15:11 | HHI.DS ---
Discharge Summary Admission Date May 15, 2017 at 23:11 Discharge Date: May 18, 2017 Admitting Diagnosis Severe Sepsis, PNA. (1) Pneumonia Diagnosis: Principal ICD Codes: J18.9 - Pneumonia, unspecified organism Status: Acute (2) Acute kidney injury superimposed on chronic kidney disease Diagnosis: Secondary ICD Codes: N17.9 - Acute kidney failure, unspecified; N18.9 - Chronic kidney disease, unspecified (3) SOB (shortness of breath) Diagnosis: Principal ICD Codes: R06.02 - Shortness of breath (4) C. difficile diarrhea Diagnosis: Principal ICD Codes: A04.72 - Enterocolitis due to Clostridium difficile, not specified as recurrent Consultants none Procedures none Brief History Patient is a 72-year-old male with a history of shortness of breath recent ER visits chest x-ray significant for probable pulmonary fibrosis presents the emergency department with shortness of breath. Patient was here a few days ago started on azithromycin, he states that he has a history of some lung scar tissue and is seen a medical insurance claims processor before. According to his patient appeared very diaphoretic and was having a very hard time breathing and looked like he was going to pass out at home, she was going to bring him up here by herself but then he looked like he was going to pass out so she called 911. He was started on breathing treatments and nonrebreather in route but his room air sat was apparently in the high 90s according to EMS. Patient about 2 weeks ago was dx as flu and was on tamaflu for 5 days never really got better and went to er 05/08/17 and started on zithromax ,chest xary at that time no significant findings and tonight on CT thorx has bilateral infiltrates superimposed on interstitial edwin disease and had positive lactic acid and elevated WBC count. CBC/BMP: 05/18/17 0637 05/18/17 0637 Significant Findings Laboratory Tests Test 05/15/17 19:10 05/15/17 19:12 05/15/17 19:43 05/15/17 21:05 White Blood Count 13.8 TH/MM3 (4.0-11.0) Neutrophils (%) (Auto) 74.1 % (16.0-70.0) Neutrophils # (Auto) 10.2 TH/MM3 (1.8-7.7) Band Neutrophils % 8 % (0-6) Neutrophils # (Manual) 10.8 TH/MM3 (1.8-7.7) Metamyelocytes 5 % (0-1) Myelocytes 3 % (0-0) Promyelocytes 7 % (0-0) Activated Partial Thromboplast Time 24.2 SEC (24.3-30.1) Blood Urea Nitrogen 45 MG/DL (7-18) Creatinine 1.84 MG/DL (0.60-1.30) Albumin 2.7 GM/DL (3.4-5.0) Sodium Level 132 MEQ/L (136-145) Potassium Level 5.4 MEQ/L (3.5-5.1) Carbon Dioxide Level 19.9 MEQ/L (21.0-32.0) Estimat Glomerular Filtration Rate 36 ML/MIN (>89) Troponin I LESS THAN 0.02 NG/ML Lipase 1045 U/L (73-393) Lactic Acid Level 4.3 mmol/L (0.4-2.0) Venous Blood pH 7.51 (7.360-7.400) Venous Blood Partial Pressure CO2 23 mmHg (44-48) Venous Blood Partial Pressure O2 16 mmHg (35-40) Venous Blood HCO3 18 mmol/L (22-26) Venous Blood Oxygen Saturation 21 % (70-76) Venous Blood Oxygen Content 4.2 Vol % (9.0-17.0) Venous Blood Base Excess -4.6 mmol/L (-2-2) Urine Mucus FEW /lpf (OCC) Test 05/15/17 21:58 05/16/17 06:16 05/16/17 17:33 05/16/17 23:42 Red Blood Count 4.04 MIL/MM3 (4.50-5.90) Hemoglobin 12.0 GM/DL (13.0-17.0) Hematocrit 35.6 % (39.0-51.0) Mean Platelet Volume 6.9 FL (7.0-11.0) Band Neutrophils % 8 % (0-6) Neutrophils # (Manual) 8.0 TH/MM3 (1.8-7.7) Myelocytes 4 % (0-0) Blood Urea Nitrogen 33 MG/DL (7-18) Calcium Level 8.3 MG/DL (8.5-10.1) Chloride Level 109 MEQ/L (98-107) Carbon Dioxide Level 20.7 MEQ/L (21.0-32.0) Estimat Glomerular Filtration Rate 56 ML/MIN (>89) Troponin I LESS THAN 0.02 NG/ML LESS THAN 0.02 NG/ML Test 05/17/17 03:25 05/17/17 17:05 05/17/17 17:36 05/18/17 06:37 Troponin I LESS THAN 0.02 NG/ML Stool C. difficile Toxin (PCR) POSITIVE (NEGATIVE) White Blood Count 13.8 TH/MM3 (4.0-11.0) 16.4 TH/MM3 (4.0-11.0) Red Blood Count 4.16 MIL/MM3 (4.50-5.90) 3.94 MIL/MM3 (4.50-5.90) Hemoglobin 12.4 GM/DL (13.0-17.0) 11.6 GM/DL (13.0-17.0) Hematocrit 36.9 % (39.0-51.0) 34.5 % (39.0-51.0) Neutrophils (%) (Auto) 93.5 % (16.0-70.0) 92.2 % (16.0-70.0) Lymphocytes (%) (Auto) 4.6 % (9.0-44.0) 4.6 % (9.0-44.0) Neutrophils # (Auto) 12.9 TH/MM3 (1.8-7.7) 15.1 TH/MM3 (1.8-7.7) Lymphocytes # (Auto) 0.6 TH/MM3 (1.0-4.8) 0.8 TH/MM3 (1.0-4.8) Blood Urea Nitrogen 21 MG/DL (7-18) 24 MG/DL (7-18) Creatinine 1.48 MG/DL (0.60-1.30) Random Glucose 143 MG/DL (74-106) 140 MG/DL (74-106) Estimat Glomerular Filtration Rate 47 ML/MIN (>89) 60 ML/MIN (>89) Imaging Last Impressions Chest X-Ray 05/18/17 0000 Signed Impressions: Service Date/Time: Thursday, May 18, 2017 10:09 - CONCLUSION: Bibasilar patchy infiltrates not significantly changed. Axel Hernandez MD Myocardial Perfusion Scan Nuc Med 05/17/17 0000 Signed Impressions: Service Date/Time: Wednesday, May 17, 2017 14:11 - CONCLUSION: Questionable slight ischemia inferoapical wall. RISK CATEGORY: Low (<1%% Annual Mortality Rate) Adrien Rosado MD Lung Scan-VQ Nuclear Medicine 05/15/17 0000 Signed Impressions: Service Date/Time: May 20:56 - CONCLUSION: Low probability for pulmonary embolism. Martin Jones MD Chest CT 05/15/17 0000 Signed Impressions: Service Date/Time: May 20:04 - CONCLUSION: 1. Scattered patchy opacities throughout both lungs consistent with probable pneumonia superimposed on chronic interstitial disease. Clinical correlation is recommended. 2. Cardiomegaly and coronary artery calcifications. 3. Mildly prominent precarinal and AP window mediastinal lymphadenopathy which is nonspecific. 4. Questionable 2.7 cm left adrenal nodule which is incompletely evaluated on this examination. Martin Jones MD ADDENDUM: The visualized portion of the left adrenal gland nodule shows Hounsfield units of 9. The visualized portions of the nodule are smoothly marginated. Although this lesion is incompletely evaluated on this study is likely relating to a benign adenoma. If further imaging is needed adrenal gland protocol MRI could be performed if clinically warranted. Baron Dahl Jr., MD PE at Discharge GENERAL: This is a well-nourished, well-developed patient, in no apparent distress. CARDIOVASCULAR: Regular rate and rhythm RESPIRATORY: clear GASTROINTESTINAL: Abdomen soft, non-tender, nondistended. Normal active bowel sounds MUSCULOSKELETAL: Extremities without clubbing, cyanosis, or edema. NEURO: Alert & Oriented x4 to person, place, time, situation. Moves all ext x4 Hospital Course Pneumonia - patient with pneumonia - vancomycin (05/16 - 2) - Zosyn ( 2- 05/18) - Duonebs Q6H while awake and PRN - CXR reviewed and reveals: Patchy opacities within the lung bases bilaterally and right mid lung field consistent with probable pneumonia. - CT chest: scattered patchy opacities throughout both lungs consistent with probable pneumonia superimposed on chronic interstitial disease. Cardiomegaly in coronary artery calcifications feeling mildly prominent precarinal and AP window mediastinal lymphadenopathy which is nonspecific. 2.7 cm left adrenal nodule which is incompletely evaluated on this exam. - Lung VQ scan: Low probability for pulmonary embolism - Patient also has interstitial lung disease - solumedrol 60 mg Q8H (05/16 - 05/18) - PO prednisone 30 mg PO BID started (05/18) Patient asking to go home Severe sepsis sepsis based on lactic acid repeat normalizing after starting of antibiotics LA on admission 4.3 -> 1.8 blood cultures NGTD Acute kidney injury superimposed on chronic kidney disease BUN on admission 45 -> 33 (2) creatinine on admission 1.84 -> 1.26 (05/16) -> 1.48 (05/17) -> 1.20 (05/18) GFR on admission 36 -> 56 (2/) -> 60 (05/18) Baseline renal function CKD stage 3 with GFR in the 50's, creatinine 1.3 and BUN 20's Initially patient on IV fluids for hydration, 05/16 DC continue to encourage PO fluid intake SOB (shortness of breath) Patient with worsening SOB since March. Patient's SOB is worse with ambulation. He is now unable to walk from room to room in his house without becoming severely SOB. Patient has a history of probable pulmonary fibrosis has seen Jason Medrano in the past, but per patient has not followed up as he was instructed. Patient endorses non productive cough worse than baseline. Two weeks ago patient was treated for Flu with Tamiflu x 5 days. Patient currently on 4 L NC - CT chest: scattered patchy opacities throughout both lungs consistent with probable pneumonia superimposed on chronic interstitial disease. Cardiomegaly in coronary artery calcifications feeling mildly prominent precarinal and AP window mediastinal lymphadenopathy which is nonspecific. 2.7 cm left adrenal nodule which is incompletely evaluated on this exam. Concern that SOB could be related to CAD CKMB and troponin Q6H x 3 Lexiscan (05/17) revealed Questionable slight ischemia inferoapical wall. Results discussed with patient by Dr. Olivarez. serial EKG completed SR Outpatient records reviewed and patient did have an Echocardiogram 12/2016 which revealed LVH and EF of 55% C. difficile diarrhea C diff positive Flagyl started (05/18) Pt Condition on Discharge: Stable Discharge Disposition: Disch w/ Home Health Serv Discharge Instructions DIET: Follow Instructions for: As Tolerated, No Restrictions Activities you can perform: Regular-No Restrictions Follow up Referrals: Cardiology - [address] Sawant PCP Follow-up - [address] Harrell Pulmonology - 2 Weeks with Jaswant Gomez MD New Medications: Prednisone (Prednisone) 10 Mg Tab 10 MG PO DIRECTED for steroid taper, #21 TAB 0 Refills take 20 mg twice day by mouth for three days, then take 20 mg once a dayby mouth for three days, then take 10 mg once a day by mouth for three days then stop Metronidazole (Flagyl) 500 Mg Tab 500 MG PO Q8HR for c diff antibiotic for 10 Days, TAB 0 Refills Continued Medications: Albuterol 6.7 GM Inh (Proventil Hfa 6.7 GM Inh) 90 Mcg/Act Aer 1 PUFF INH Q4H PRN for SHORTNESS OF BREATH, #1 INHALER 0 Refills Aspirin (Aspirin) 81 Mg Chew 81 MG CHEW DAILY, TAB 0 Refills Atorvastatin (Atorvastatin) 40 Mg Tab 40 MG PO HS for Cholesterol Management, #30 TAB 0 Refills B-Complex Vitamins (Vitamin B Complex) 1 Tab Calcium Carbonate-Cholecalciferol (Calcium 500 +D) 500-400 Mg-Unit Tab 1 TAB PO BID for Calcium Supplement, TAB 0 Refills Fenofibrate (Fenofibrate) 145 Mg Tab 145 MG PO DAILY, #30 TAB 0 Refills Fluoxetine (Fluoxetine) 20 Mg Tab 20 MG PO DAILY, #30 TAB 0 Refills Lisinopril (Lisinopril) 20 Mg Tab 20 MG PO DAILY, #30 TAB 0 Refills Multiple Vitamins W/ Minerals (Centrum) 1 Chew 1 TAB CHEW DAILY for Nutritional Supplement, TAB 0 Refills [id number] Ethyl Esters (Lovaza) 1 Gm Cap 2 GM PO BID for Manage Triglycerides, #120 CAP 0 Refills Additional Information Patient examined. Assessment and plan formulated with Paula Beíntez PA-C. I agree with the above. Paula Benítez May 18, 2017 15:11 Ari Olivarez DO May 21, 2017 11:15
--- NOTE | 2017-05-18 15:12 | HHI.FF ---
Face to Face Verification Diagnosis: (1) Pneumonia (2) SOB (shortness of breath) (3) C. difficile diarrhea (4) Hypoxia Physical Therapy Order: Evaluate and Treat, Improve ambulation, Strength and gait training Home Health Nursing Order: Medical education Signs/symptoms of disease process Nursing assessment with vital signs I have seen patient Mario Gates on 05/18/17. My clinical findings support the need for the requested home health care services because: Ltd mobility - disease progression Med compliance is questionable I certify that my clinical findings support that this patient is homebound because: Hx COPD- exertion dyspnea/weakness Paula Benítez May 18, 2017 15:12 Ari Olivarez DO May 21, 2017 11:14
[2017-05-18] MEDS ORDERED: predniSONE 10 MG TAB PO SCH (21:00)
== END 2017-05-18 16:41 | disposition home health service (06) | DRG 871 ==
LOC: NEPE 19:00 → NEDA 23:11 → N04A 05-16 00:55
PROVIDERS: ADMIT Hospitalist; ATTEND Hospitalist
DX: A41.9 Sepsis, unspecified organism (principal); J18.9 Pneumonia, unspecified organism; N17.9 Acute kidney failure, unspecified; A04.72 Enterocolitis due to Clostridium difficile, not specified as recurrent; E27.8 Other specified disorders of adrenal gland; J84.10 Pulmonary fibrosis, unspecified; N18.3 Chronic kidney disease, stage 3 (moderate); R65.20 Severe sepsis without septic shock; E78.5 Hyperlipidemia, unspecified; I12.9 Hypertensive chronic kidney disease with stage 1 through stage 4 chronic kidney disease, or unspecified chronic kidney disease; I25.10 Atherosclerotic heart disease of native coronary artery without angina pectoris; Z79.82 Long term (current) use of aspirin; Z87.891 Personal history of nicotine dependence
CPT/HCPCS: 71045; 71250; 78452; 78582; 80048; 80053; 81001; 82550; 82805; 83605; 83690; 83735; 84100; 84484; 85007; 85025; 85027; 85610; 85730; 87040; 87493; 93005; 93017; 94618; 94640; 94664; 96361; 96365; 96367; A9502; A9540; A9567; J2543; J2785; J2930; J3370; J7030; J7050